=== PATIENT | female | born 1935 | race Caucasian/White ===

== ENCOUNTER 2016-07-22 11:04 | Emergency (ER) | payer MEDICARE ==
[2016-07-22] MEDS ORDERED: Aspirin Low Dose CHEW TAB* 81 MG PO ONE (11:40)
[2016-07-22] MEDS ORDERED: NS 0.9% 1000 ML* 1,000 ML IV SCH (11:45)
[2016-07-22 11:51] LABS: Hematocrit 41 % (35-47); Hemoglobin 13.3 g/dl (12.0-16.0); Mean Corpuscular HGB Conc 33 g/dl (31-36); Mean Corpuscular Hemoglobin 31 pg (27-31); Mean Corpuscular Volume 96 fL (80-97); Mean Platelet Volume 9 um3 (7.4-10.4); Red Blood Count 4.24 10^6/ul (4.0-5.4); Red Cell Distribution Width 15 % (10.5-15); White Blood Count 10.6 10^3/ul (3.5-10.8)
[2016-07-22 11:52] LABS: Add Diff/Slide Review? Slide Review Added; Comments Flag Yes
[2016-07-22 12:02] LABS: Albumin 3.5 g/dL (3.2-5.2); BUN/Creatinine Ratio 21.3 (8-20); C Reactive Protein 1.58 mg/L (< 5.00); Calcium 9.2 mg/dL (8.6-10.3); EGFR African American 78.7 (>60); EGFR Non-African American 61.2 (>60); Globulin 2.4 g/dL (2-4); Magnesium 1.8 mg/dL (1.9-2.7); Potassium 4.3 mmol/L (3.5-5.0); Total Bilirubin 0.9 mg/dL (0.2-1.0); Total Protein 5.9 g/dL (6.4-8.9)
--- NOTE | 2016-07-22 12:36 | RAD ---
INDICATION: Jaw pain COMPARISON: Similar chest x-ray dated November 10, 2015 TECHNIQUE: Single AP portable view of the chest was obtained. FINDINGS: Image quality is compromised due to the relative inferiority of a portable chest x-ray. The heart and mediastinum exhibit normal size and contour. The lungs are grossly clear. There is no evidence of a large pleural effusion. Visualized bones are normal for the patient's age. IMPRESSION: No radiographic evidence for acute cardiopulmonary abnormality on this portable chest x-ray.
--- NOTE | 2016-07-22 13:40 | ED ---
Amy Baca Adam, scribed for Augusto Juares MD on 07/22/16 at 1143 . Palpitations / Dysrhythmia - HPI Summary HPI Summary: A 81 y/o female presents to the ED c/o palpitations that started at 00:30 this morning with pain in her left jaw, neck, and arm. Additionally, she felt like her heart was racing with pressure. Currently, she has no symptoms, and came to the ED because she called Dr. Hanks's office and they recommended she come to the ED. Currently, patient has no CP, and she denies nausea, SOB, diaphoresis, extremity edema, or abdominal pain. PMHx is positive for HTN and Afib. She had a stress test in 2015. - History of Current Complaint Chief Complaint: EDDysrhythmPalp Time Seen by Provider: 07/22/16 11:10 Hx Obtained From: Patient Onset/Duration: Sudden Onset - 00:30 last night Timing: Intermittent Episodes Lasting: Severity Initially: Moderate Severity Currently: None Character: Fast Aggravating: Nothing Alleviating: Nothing - Allergy/Home Medications Allergies/Adverse Reactions: Allergies Allergy/AdvReac Type Severity Reaction Status Date / Time No Known Allergies Allergy Verified 07/05/14 11:34 PMH/Surg Hx/FS Hx/Imm Hx Endocrine/Hematology History: Reports: Hx Diabetes Cardiovascular History: Reports: Hx Atrial Fibrillation, Other Cardiovascular Problems/Disorders - IDDM II ORAL MEDS Denies: Hx Hypercholesterolemia, Hx Hypertension Musculoskeletal History: Denies: Hx Arthritis, Hx Osteoporosis Neurological History: Denies: Other Neuro Impairments/Disorders - Surgical History Surgery Procedure, Year, and Place: hysterectomy Infectious Disease History: No Infectious Disease History: Denies: Traveled Outside the [place] in Last 30 Days - Family History Known Family History: Negative: Cardiac Disease, Hypertension, Diabetes - Social History Alcohol Use: Daily Alcohol Amount: ONE GLASS A NIGHT Substance Use Type: Reports: None Hx Tobacco Use: No Smoking Status (MU): Never Smoked Tobacco Review of Systems Constitutional: Negative Negative: Skin Diaphoresis Eyes: Negative ENT: Negative Positive: Palpitations - with radiation to left neck, jaw, and arm. Negative: Chest Pain Respiratory: Negative Negative: Shortness Of Breath Gastrointestinal: Negative Negative: Abdominal Pain, Nausea Genitourinary: Negative Musculoskeletal: Negative Negative: Edema Skin: Negative Neurological: Negative Psychological: Normal All Other Systems Reviewed And Are Negative: Yes Physical Exam Triage Information Reviewed: Yes Vital Signs On Initial Exam: Initial Vitals Temp Pulse Resp BP Pulse Ox 97.4 F 69 15 140/59 100 07/22/16 11:17 07/22/16 11:17 07/22/16 11:17 07/22/16 11:17 07/22/16 11:17 Vital Signs Reviewed: Yes Appearance: Positive: Well-Appearing, No Pain Distress Skin: Positive: Warm, Skin Color Reflects Adequate Perfusion, Dry Head/Face: Positive: Normal Head/Face Inspection Eyes: Positive: EOMI, THUY ENT: Positive: Normal ENT inspection Neck: Positive: Supple, Nontender Respiratory/Lung Sounds: Positive: Clear to Auscultation, Breath Sounds Present Cardiovascular: Positive: RRR Abdomen Description: Positive: Nontender, Soft Bowel Sounds: Positive: Present Musculoskeletal: Positive: Normal, Strength/ROM Intact Neurological: Positive: Normal, Sensory/Motor Intact, Alert, Oriented to Person Place, Time Psychiatric: Positive: Normal Diagnostics - Vital Signs Vital Signs Temp Pulse Resp BP Pulse Ox 07/22/16 11:17 97.4 F 69 15 140/59 100 - Laboratory Lab Results: Lab Results 07/22/16 07/22/16 07/22/16 Range/Units 11:22 11:22 11:22 WBC 10.6 (3.5-10.8) 10^3/ul RBC 4.24 (4.0-5.4) 10^6/ul Hgb 13.3 (12.0-16.0) g/dl Hct 41 (35-47) % MCV 96 (80-97) fL MCH 31 (27-31) pg MCHC 33 (31-36) g/dl RDW 15 (10.5-15) % Plt Count 165 (150-450) 10^3/ul MPV 9 (7.4-10.4) um3 Neut % (Auto) 59.2 (38-83) % Lymph % (Auto) 31.3 (25-47) % [place]oshone % (Auto) 7.2 (1-9) % Eos % (Auto) 2.0 (0-6) % Baso % (Auto) 0.3 (0-2) % Absolute Neuts (auto) 6.2 (1.5-7.7) 10^3/ul Absolute Lymphs (auto) 3.3 (1.0-4.8) 10^3/ul Absolute Monos (auto) 0.8 (0-0.8) 10^3/ul Absolute Eos (auto) 0.2 (0-0.6) 10^3/ul Absolute Basos (auto) 0 (0-0.2) 10^3/ul Absolute Nucleated RBC 0.02 10^3/ul Nucleated RBC % 0.2 INR (Anticoag Therapy) 1.17 H (0.89-1.11) APTT 32.9 (26.0-36.3) seconds D-Dimer, Quantitative < 200 (Less Than 230) ng/mL Sodium 139 (133-145) mmol/L Potassium 4.3 (3.5-5.0) mmol/L Chloride 108 (101-111) mmol/L Carbon Dioxide 26 (22-32) mmol/L Anion Gap 5 (2-11) mmol/L BUN 19 (6-24) mg/dL Creatinine 0.89 (0.51-0.95) mg/dL Est GFR ( Amer) 78.7 (>60) Est GFR (Non-Af Amer) 61.2 (>60) BUN/Creatinine Ratio 21.3 H (8-20) Glucose 145 H (70-100) mg/dL Lactic Acid (0.5-2.0) mmol/L Calcium 9.2 (8.6-10.3) mg/dL Magnesium 1.8 L (1.9-2.7) mg/dL Total Bilirubin 0.90 (0.2-1.0) mg/dL AST 14 (13-39) U/L ALT 8 (7-52) U/L Alkaline Phosphatase 87 (34-104) U/L Total Creatine Kinase 29 (10-223) U/L CK-MB (CK-2) 1.5 (0.6-6.3) ng/mL Troponin I 0.00 (<0.04) ng/mL C-Reactive Protein 1.58 (< 5.00) mg/L B-Natriuretic Peptide ( - 100) pg/mL Total Protein 5.9 L (6.4-8.9) g/dL Albumin 3.5 (3.2-5.2) g/dL Globulin 2.4 (2-4) g/dL Albumin/Globulin Ratio 1.5 (1-3) Lipase 19 (11.0-82.0) U/L TSH 2.00 (0.34-5.60) mcIU/mL 07/22/16 07/22/16 Range/Units 11:22 11:22 WBC (3.5-10.8) 10^3/ul RBC (4.0-5.4) 10^6/ul Hgb (12.0-16.0) g/dl Hct (35-47) % MCV (80-97) fL MCH (27-31) pg MCHC (31-36) g/dl RDW (10.5-15) % Plt Count (150-450) 10^3/ul MPV (7.4-10.4) um3 Neut % (Auto) (38-83) % Lymph % (Auto) (25-47) % [place] % (Auto) (1-9) % Eos % (Auto) (0-6) % Baso % (Auto) (0-2) % Absolute Neuts (auto) (1.5-7.7) 10^3/ul Absolute Lymphs (auto) (1.0-4.8) 10^3/ul Absolute Monos (auto) (0-0.8) 10^3/ul Absolute Eos (auto) (0-0.6) 10^3/ul Absolute Basos (auto) (0-0.2) 10^3/ul Absolute Nucleated RBC 10^3/ul Nucleated RBC % INR (Anticoag Therapy) (0.89-1.11) APTT (26.0-36.3) seconds D-Dimer, Quantitative (Less Than 230) ng/mL Sodium (133-145) mmol/L Potassium (3.5-5.0) mmol/L Chloride (101-111) mmol/L Carbon Dioxide (22-32) mmol/L Anion Gap (2-11) mmol/L BUN (6-24) mg/dL Creatinine (0.51-0.95) mg/dL Est GFR ( Amer) (>60) Est GFR (Non-Af Amer) (>60) BUN/Creatinine Ratio (8-20) Glucose (70-100) mg/dL Lactic Acid 0.7 (0.5-2.0) mmol/L Calcium (8.6-10.3) mg/dL Magnesium (1.9-2.7) mg/dL Total Bilirubin (0.2-1.0) mg/dL AST (13-39) U/L ALT (7-52) U/L Alkaline Phosphatase (34-104) U/L Total Creatine Kinase (10-223) U/L CK-MB (CK-2) (0.6-6.3) ng/mL Troponin I (<0.04) ng/mL C-Reactive Protein (< 5.00) mg/L B-Natriuretic Peptide 213 H ( - 100) pg/mL Total Protein (6.4-8.9) g/dL Albumin (3.2-5.2) g/dL Globulin (2-4) g/dL Albumin/Globulin Ratio (1-3) Lipase (11.0-82.0) U/L TSH (0.34-5.60) mcIU/mL Result Diagrams: 07/22/16 11:22 07/22/16 11:22 Lab Statement: Any lab studies that have been ordered have been reviewed, and results considered in the medical decision making process. - Radiology CXR Xray Interpretation: No Acute Changes Radiology Interpretation Completed By: Radiologist - EKG 11:06 Cardiac Rate: NL - 68 EKG Rhythm: Sinus Rhythm EKG Interpretation: LBBB, NC 218 Re-Evaluation - Re-Evaluation First Eval Re-Evaluation Time: 13:32 Change: Unchanged Comment: Patient still without CP. Requesting discharge. Course/Dx - Course Assessment/Plan: PAIN FREE/NAD IN ED. DISCUSSED RESULTS AND ADMISSION WITH PATIENT/. PATIENT DECLINES ADMISSION, WISHES TO GO HOME. DISCHARGE HOME STABLE. - Diagnoses Provider Diagnoses: Chest pain Discharge - Discharge Plan Condition: Stable Disposition: HOME Patient Education Materials: Chest Pain (ED) Referrals: Chiquis Cisneros MD [Primary Care Provider] - Additional Instructions: FOLLOW UP WITH YOUR PRIMARY CARE DOCTOR AND MARINE [employer] D[employer] ATTENDANT, DR HANKS. RETURN TO THE EMERGENCY DEPARTMENT FOR ANY WORSENING OF YOUR CONDITION; CHEST PAIN, SHORTNESS OF BREATH, YOU FEEL ILL OR QUESTIONS OR CONCERNS. The documentation as recorded by the Amy rivera Adam accurately reflects the service I personally performed and the decisions made by me, Augusto Juares MD.
[2016-07-22 13:57] VITALS: BP 130/37
== END 2016-07-22 13:55 | disposition home or self-care (01) ==
LOC: ED 11:04
DX: R00.2 Palpitations (principal); R07.9 Chest pain, unspecified
CPT/HCPCS: 36415; 71010; 80053; 82550; 82553; 83605; 83690; 83735; 83880; 84443; 84484; 85025; 85379; 85610; 85730; 86140; 93005; 99284; A9270-GY

== ENCOUNTER 2017-02-01 10:52 | Inpatient (IN) | payer MEDICARE ==
[2017-02-01] MEDS ORDERED: Morphine INJ* 2 MG/ML 1 ML SYRINGE IV ONE ×2 (11:16→13:21)
--- NOTE | 2017-02-01 11:23 | ED ---
Lower Extremity - HPI Summary HPI Summary: Patient presents s/p fall x 30 minutes ago after falling onto the right hip and hearing a "crack." She denies hitting her head, LOC or other complaints at this time. She has been unable to ambulate and notes to pain in the right hip. Denies pain otherwise including JOHNSON, back pain or pelvic pain. Pain is very discretely located over the right lateral hip. No bruising or deformity noted, but patients hip is rotated inward. Denies other symptoms at this time. Pain is 7/10 and constant. - History of Current Complaint Chief Complaint: EDHipPelvisInjury Stated Complaint: FALL Time Seen by Provider: 02/01/17 11:09 Hx Obtained From: Patient Mechanism Of Injury: Blunt Trauma Onset of Pain: Immediate Onset/Duration: Minutes Severity Initially: Moderate Severity Currently: Moderate Pain Intensity: 5 Pain Scale Used: 0-10 Numeric Timing: Constant Location: Is Discrete @ - right hip without radiation Associated Signs And Symptoms: Positive: Negative Aggravating Factor(s): Standing, Ambulation, Movement Alleviating Factor(s): Rest Able to Bear Weight: No - Risk Factors Gout Risk Factors: Age Over 40 DVT Risk Factors: Negative Septic Arthritis Risk Factor: Negative - Allergies/Home Medications Allergies/Adverse Reactions: Allergies Allergy/AdvReac Type Severity Reaction Status Date / Time No Known Allergies Allergy Verified 02/01/17 11:08 Home Medications: Home Medications Atorvastatin* [Lipitor 20 MG*] 20 mg PO DAILY 02/01/17 [History Confirmed ] Dronedarone TAB* [Multaq TAB*] 400 mg PO DAILY 02/01/17 [History Confirmed 02/01] Pioglitazone HCl 30 mg PO DAILY 02/01/17 [History Confirmed 02/01/17] PMH/Surg Hx/FS Hx/Imm Hx Previously Healthy: Yes Endocrine/Hematology History: Reports: Hx Diabetes Cardiovascular History: Reports: Hx Atrial Fibrillation, Other Cardiovascular Problems/Disorders - IDDM II ORAL MEDS Denies: Hx Hypercholesterolemia, Hx Hypertension Musculoskeletal History: Denies: Hx Arthritis, Hx Osteoporosis Neurological History: Denies: Other Neuro Impairments/Disorders - Surgical History Surgery Procedure, Year, and Place: hysterectomy - Immunization History Hx Pertussis Vaccination: No Immunizations Up to Date: Unable to Obtain/Confirm Infectious Disease History: No Infectious Disease History: Denies: Traveled Outside the [place] in Last 30 Days - Family History Known Family History: Negative: Cardiac Disease, Hypertension, Diabetes - Social History Occupation: Retired Lives: With Family Alcohol Use: Daily Alcohol Amount: gin and tonic Hx Substance Use: No Substance Use Type: Reports: None Hx Tobacco Use: No Smoking Status (MU): Never Smoked Tobacco Review of Systems Constitutional: Negative Eyes: Negative Cardiovascular: Negative Respiratory: Negative Gastrointestinal: Negative Positive: no symptoms reported, see HPI Positive: Arthralgia, Myalgia Skin: Negative Neurological: Negative All Other Systems Reviewed And Are Negative: Yes Physical Exam Triage Information Reviewed: Yes Vital Signs On Initial Exam: Initial Vitals Temp Pulse Resp BP Pulse Ox 98.1 F 60 18 138/54 96 02/01/17 10:59 02/01/17 10:59 02/01/17 10:59 02/01/17 10:59 02/01/17 10:59 Vital Signs Reviewed: Yes Appearance: Positive: Well-Appearing, Well-Nourished Skin: Positive: Warm, Skin Color Reflects Adequate Perfusion Head/Face: Positive: Normal Head/Face Inspection Neck: Positive: Supple, Nontender, No Lymphadenopathy Respiratory/Lung Sounds: Positive: Clear to Auscultation, Breath Sounds Present Cardiovascular: Positive: Normal, RRR, Pulses are Symmetrical in both Upper and Lower Extremities Musculoskeletal: Positive: Limited @ - full limitation of right leg. unable to rotate at hip, unable to bear weight Neurological: Positive: Sensory/Motor Intact, Alert, Oriented to Person Place, Time, Speech Normal Psychiatric: Positive: Normal AVPU Assessment: Alert - [place] Coma Scale Coma Scale Total: 15 Diagnostics - Vital Signs Vital Signs Temp Pulse Resp BP Pulse Ox 02/01/17 11:06 98.1 F 60 17 138/54 97 02/01/17 11:05 60 97 02/01/17 10:59 98.1 F 60 18 138/54 96 - Laboratory Result Diagrams: 02/01/17 11:22 02/01/17 11:22 Lab Statement: Any lab studies that have been ordered have been reviewed, and results considered in the medical decision making process. Lower Extremity Course/Dx - Course Course Of Treatment: Patient sent to xrays of the hip and pelvis. Base labs drawn. Morphine 2mg given IV. IMPRESSION: COMMINUTED, DISPLACED, ANGULATED INTERTROCHANTERIC FRACTURE OF THE RIGHT FEMUR. Dr. Butcher called for consult. Recommended admit to hospitalist and ortho will come see patient within the next few days. Patient is on eliquis for a-fib and last dose was last evening. Pain is currently under control. She is otherwise stable. - Diagnoses Differential Diagnosis/HQI/PQRI: Positive: Contusion, Fracture (Closed), Fracture (Open) Provider Diagnoses: Closed comminuted intertrochanteric fracture of femur Discharge - Discharge Plan Condition: Stable Disposition: ADMITTED TO [facility] Referrals: Chiquis Cisneros MD [Primary Care Provider] -
[2017-02-01 11:37] LABS: Hematocrit 38 % (35-47); Hemoglobin 12.5 g/dl (12.0-16.0); Mean Corpuscular HGB Conc 33 g/dl (31-36); Mean Corpuscular Hemoglobin 32 pg (27-31); Mean Corpuscular Volume 97 fL (80-97); Mean Platelet Volume 9 um3 (7.4-10.4); Red Blood Count 3.95 10^6/ul (4.0-5.4); Red Cell Distribution Width 16 % (10.5-15); White Blood Count 11.2 10^3/ul (3.5-10.8)
[2017-02-01 11:46] LABS: Albumin 3.6 g/dL (3.2-5.2); BUN/Creatinine Ratio 23.4 (8-20); C Reactive Protein 1.32 mg/L (< 5.00); EGFR African American 73.9 (>60); EGFR Non-African American 57.4 (>60); Potassium 4.6 mmol/L (3.5-5.0); Total Bilirubin 1.2 mg/dL (0.2-1.0); Total Protein 5.6 g/dL (6.4-8.9)
[2017-02-01 12:17] LABS: Erythrocyte Sed Rate 10 mm/Hr (0-40)
--- NOTE | 2017-02-01 12:31 | RAD ---
INDICATION: Trauma, hip fracture. COMPARISON: Comparison is made with a prior chest x-ray study from July 21, 2016. TECHNIQUE: A single AP supine film of the chest was obtained. FINDINGS: The heart is mildly enlarged and unchanged from the prior exam. The lungs are hyperinflated and clear. No pleural effusion is seen. IMPRESSION: NO EVIDENCE FOR ACUTE FINDING.
--- NOTE | 2017-02-01 12:32 | RAD ---
INDICATION: Right hip injury. COMPARISON: There are no prior studies available for comparison. TECHNIQUE: An AP view of the pelvis and frontal and lateral views of the right hip were obtained. FINDINGS: There is a comminuted intertrochanteric fracture of the right femur. The fracture fragments are displaced and there is varus angulation of the fracture fragments. IMPRESSION: COMMINUTED, DISPLACED, ANGULATED INTERTROCHANTERIC FRACTURE OF THE RIGHT FEMUR.
[2017-02-01] MEDS ORDERED: Diazepam SYRINGE* 5 MG/ML SYRINGE IV ONE (13:22)
[2017-02-01] MEDS ORDERED: Ondansetron INJ* 2 MG/ML VIAL IV PRN (13:23)
[2017-02-01] MEDS ORDERED: Morphine INJ* 2 MG/ML 1 ML SYRINGE IV PRN (13:23)
[2017-02-01] MEDS ORDERED: oxyCODONE/Acetamin 5/325 MG* TAB PO PRN (13:23)
[2017-02-01] MEDS ORDERED: Cyclobenzaprine TAB* 10 MG PO PRN (13:26)
[2017-02-01] MEDS ORDERED: Dextrose 50% Syringe 50 ML* 25 GM/50 ML SYRINGE IV PUSH PRN (13:52)
[2017-02-01 14:13] LABS: Magnesium 1.7 mg/dL (1.9-2.7)
[2017-02-01] MEDS: Heparin VIAL(*) 5000 UNITS/ML VIAL (FIVE THOUSAND) SUBCUT SCH ×2 (14:59→21:35)
[2017-02-01] MEDS ORDERED: Magnesium Sulfate 2 GM IV* 2 GM/50 ML BAG IVPB ONE (16:41)
[2017-02-01 16:48] LABS: Urine Bilirubin Negative (Negative); Urine Glucose Negative (Negative); Urine Nitrite Negative (Negative)
[2017-02-01] MEDS: Insulin LISPRO* 1 UNITS UNIT SUBCUT SCH (17:38)
[2017-02-01] MEDS: Morphine INJ* 2 MG/ML 1 ML SYRINGE IV PRN (18:18)
[2017-02-01] MEDS: oxyCODONE/Acetamin 5/325 MG* TAB PO PRN (21:35)
[2017-02-01] MEDS: Metoprolol Tartrate TAB* 25 MG PO SCH (21:35)
--- NOTE | 2017-02-01 23:13 | HP ---
ATTENDING PHYSICIAN ADDENDUM NOW INCLUDED ON THIS REPORT CC: Dr. Cisneros* ADMISSION HISTORY AND PHYSICAL: DATE OF ADMISSION: 02/01/17 PRIMARY CARE PROVIDER: Dr. Cisneros. CONSULTING ORTHOPEDIC SURGEON: Dr. Butcher. ADMITTING PROVIDER: CARLA Booker SUPERVISING PHYSICIAN: Dr. Hutton * (DICTATED BY CARLA BOOKER) CHIEF COMPLAINT: Right hip pain. HISTORY OF PRESENT ILLNESS: This is a very pleasant 81-year-old female with non - insulin-dependent diabetes, paroxysmal atrial fibrillation, hyperlipidemia, cutaneous T-cell lymphoma who presented to the emergency department after sustaining a fall at home with right hip pain. The patient was gardening this morning when she tripped over the edge of her driveway trying to exit the garden falling onto the asphalt on her right hip. The patient presented to the emergency department with limited range of motion in the leg and obvious external rotation. Fracture confirmed by x-ray. The patient reports that her chronic medical conditions are well controlled. She is on glipizide and pioglitazone for diabetes management. She states that her fasting blood glucose averages about 110 to 115 mg/dL. She is unsure of what her last hemoglobin A1c was. She is followed by Dr. Hanks for her atrial fibrillation, which was diagnosed in July of this year. She was started on Multaq and metoprolol and anticoagulated with Eliquis at that time. She has had no further complaints of palpitations since initiating Multaq. She does have some chronic shortness of breath. Sleep testing was recommended by Dr. Hanks, which she did not follow through with for suspected sleep apnea. In regards to the patient's cutaneous T-cell lymphoma, she states that she has completed recommended therapy, which included topical cream, but she still uses daily triamcinolone. The patient denies any recent acute illness. She denies any change in her shortness of breath. She states that she is generally able to climb a flight of stairs but occasionally has to stop due to her dyspnea. No recent lower extremity edema or significant changes in weight. No complaints of chest pain or cough. No recent abdominal pain, nausea, or vomiting. No fever or chills. PAST MEDICAL HISTORY: 1. Bnx-xccnyfx-sjymwhuhq diabetes. 2. Atrial fibrillation. 3. Hyperlipidemia. 4. History of cutaneous T-cell lymphoma. PAST SURGICAL HISTORY: Hysterectomy. HOME MEDICATIONS: 1. Glipizide extended release 2.5 mg p.o. daily. 2. Eliquis 5 mg p.o. b.i.d. - last dose 01/31/17. 3. Atorvastatin 20 mg p.o. daily. 4. Multaq 400 mg p.o. daily. 5. Metoprolol tartrate 25 mg p.o. twice daily. 6. Pioglitazone 30 mg p.o. daily. 7. Triamcinolone cream apply topically daily. SOCIAL HISTORY: The patient lives at home with her . She denies any smoking history. She has 1 gin and tonic daily poured in the water glass. REVIEW OF SYSTEMS: As listed above in HPI and all other systems reviewed and considered negative. PHYSICAL EXAMINATION GENERAL: This is a very pleasant 81-year-old female accompanied by her and another family who does not appear to be in any distress at the time of exam. VITAL SIGNS: Temperature 98.1 degrees Fahrenheit, pulse 60 beats per minute, respiratory rate 18 per minute, oxygen saturation 96% on room air, and blood pressure 138/54 mmHg. HEENT: Head is normocephalic, atraumatic. Mucous membranes are pink and moist. RESPIRATORY: Lungs are clear to auscultation without wheezes, crackles, or rhonchi. CARDIOVASCULAR: Heart has a regular rate and rhythm without murmurs, rubs, or gallops. ABDOMEN: Soft and nontender to palpation. EXTREMITIES: There is trace edema. Right lower extremity is externally rotated. Further exam of the hip was not completed. Vascular - distal pulses are intact. LABORATORY EVALUATION: CBC shows white blood cell count of 11.2, hemoglobin of 12.5 g/dL, platelet count of 152,000. Comprehensive metabolic panel largely unremarkable with sodium of 139 mmol/L, potassium of 4.6, BUN 22, creatinine 0.94, random glucose of 136 mg/dL. Total bilirubin is mildly elevated at 1.2. Transaminases are normal. IMAGIN. Chest x-ray is read as no acute process, appears perhaps mildly congested per personal review. 2. EKG shows a sinus rhythm with left bundle-branch block, which is unchanged from prior. 3. X-ray of the right hip shows a comminuted right intertrochanteric hip fracture, which is slightly angulated. ASSESSMENT AND PLAN: This is a very pleasant 81-year-old female with non- insulin- dependent diabetes, atrial fibrillation, hyperlipidemia, and history of cutaneous T- cell lymphoma who presented after a fall at home resulting in a right intertrochanteric hip fracture. The patient is being admitted for appropriate management. 1. Hip fracture - comminuted right intertrochanteric fracture: Orthopedic surgeon, Dr. Butcher was contacted by emergency department provider. The patient' s surgical course will be somewhat complicated or at least delayed by her chronic use of Eliquis. Her last dose was last night, 01/31/17. Recommendations would be to wait 48 hours for a total of 4 missed doses before proceeding with surgery. The patient will receive prophylactic doses of heparin for DVT prophylaxis during that time but bridging with full dose anticoagulation is not necessary as her only indication for anticoagulation is atrial fibrillation. In regards to the surgical risks, the patient has an RCRI score of 0 placing her at 0.4% rate of potential cardiovascular complications perioperatively. The patient is medically optimized and there is no contraindication to moving forward with planned procedure after waiting time for her Eliquis has been completed. 2. Diabetes - the patient is well controlled without insulin therapy. We will hold her glipizide and pioglitazone during her hospital stay and treat with sliding scale lispro at mealtime. 3. Atrial fibrillation - the patient is sinus at this time and reports no history of palpitations since starting her Multaq. She does have chronic shortness of breath. Last echocardiogram seems to be from September 2015, referred to Dr. Hanks's last followup note from earlier this year and it was essentially within normal limits with an intact systolic function of the left ventricle with mild or borderline LVH and no significant valvular disease. No indication to repeat it at this time. We will plan to continue her Multaq and metoprolol including day of surgery. Her Eliquis will be held at this time as noted above. Bridging with full- dose anticoagulation is not indicated. 4. Hyperlipidemia. Plan to continue her statins. 5. History of cutaneous T-cell lymphoma - continue her daily triamcinolone. 6. Code status: The patient is full code. 7. Healthcare proxy is her . 8. DVT prophylaxis: The patient is chronically anticoagulated on Eliquis, which will be held. Prophylactic doses of heparin subcu will be given preoperatively and can likely resume her Eliquis postoperatively. DISPOSITION: The patient is being admitted to inpatient service. Pending orthopedic consultation. Anticipated length of stay is greater than 2 midnights. CARLA BOOKER ADDENDUM: Mrs. East is a 81-year-old female with history of recently diagnosed paroxysmal atrial fibrillation who presented to the hospital after mechanical fall and was noted to have a hip fracture. Medicine service is admitting the patient to the hospital. Due to the patient being on anticoagulation with Eliquis, she most likely will have the surgery in approximately [address] Butcher is involved from the orthopedic service. For further details of the patient's history and physical, please see the documentation dictated by Arnaldo Ware on 02/01/17, with which I agree. TEREZA HUTTON MD [id number]/CPS #: [id number]/CPS #: [id number] [place]
--- NOTE | 2017-02-01 23:13 | HP ---
HISTORY AND PHYSICAL:* ADDENDUM: Mrs. East is a 81-year-old female with history of recently diagnosed paroxysmal atrial fibrillation who presented to the hospital after mechanical fall and was noted to have a hip fracture. Medicine service is admitting the patient to the hospital. Due to the patient being on anticoagulation with Eliquis, she most likely will have the surgery in approximately [address] Butcher is involved from the orthopedic service. For further details of the patient's history and physical, please see the documentation dictated by Arnaldo Ware on 02/01/17, with which I agree. [id number]/CPS #: [id number] MTDD
[2017-02-02] MEDS: Morphine INJ* 2 MG/ML 1 ML SYRINGE IV PRN (04:05)
[2017-02-02] MEDS: Heparin VIAL(*) 5000 UNITS/ML VIAL (FIVE THOUSAND) SUBCUT SCH ×3 (06:21→21:28)
[2017-02-02] MEDS: oxyCODONE/Acetamin 5/325 MG* TAB PO PRN ×4 (06:22→20:03)
[2017-02-02 06:33] LABS: Hematocrit 37 % (35-47); Mean Corpuscular HGB Conc 33 g/dl (31-36); Mean Corpuscular Hemoglobin 32 pg (27-31); Mean Corpuscular Volume 99 fL (80-97); Mean Platelet Volume 9 um3 (7.4-10.4); Red Blood Count 3.74 10^6/ul (4.0-5.4); Red Cell Distribution Width 16 % (10.5-15); White Blood Count 11.3 10^3/ul (3.5-10.8)
[2017-02-02 06:49] LABS: BUN/Creatinine Ratio 26.8 (8-20); Calcium 8.5 mg/dL (8.6-10.3); EGFR African American 102.1 (>60); EGFR Non-African American 79.4 (>60); Potassium 4.5 mmol/L (3.5-5.0)
--- NOTE | 2017-02-02 08:03 | PN ---
Progress Note - Progress Note Date of Service: 02/02/17 SOAP: Subjective: 81 y/o female s/p mechanical fall resulting in right intertroch comm angulated displaced hip fx. Patient on Eliquis for A fib, last dose 01/31, surgery delayed due to this. Patient overall feeling well, pain at mid femur, worse with movement. Denies other pain. Bed rest Objective: General- Well appearing, resting comfortably. AO NAD MSK- R leg externally rotated, shortened. ROM not attempted d/t pain, NO pain with moderate palpation over hip, + tenderness anterior mid thigh, full ROM ankle b/l, PT 2+ b/l, neg homans sensation grossly intact b/l LEs Vital Signs Temp 97.5 F 02/02/17 07:45 Pulse 58 02/02/17 07:45 Resp 18 02/02/17 08:00 BP 133/38 02/02/17 07:45 Pulse Ox 96 02/02/17 07:45 Intake & Output 02/01/17 02/02/17 02/02/17 18:59 06:59 18:59 Intake Total 675 Output Total 700 Balance -25 Weight 200 lb Intake: IV Fluids 20 normal saline 20 IVPB 55 magnesium 55 Oral 600 Output: Dubose 700 Laboratory Results - last 24 hr 02/01/17 02/01/17 02/01/17 11:22 11:22 16:43 WBC 11.2 H RBC 3.95 L Hgb 12.5 Hct 38 MCV 97 MCH 32 H MCHC 33 RDW 16 H Plt Count 152 MPV 9 Neut % (Auto) 64.4 Lymph % (Auto) 26.3 [place] % (Auto) 7.1 Eos % (Auto) 1.6 Baso % (Auto) 0.6 Absolute Neuts (auto) 7.2 Absolute Lymphs (auto) 2.9 Absolute Monos (auto) 0.8 Absolute Eos (auto) 0.2 Absolute Basos (auto) 0.1 Absolute Nucleated RBC 0 Nucleated RBC % 0 ESR 10 Sodium 139 Potassium 4.6 Chloride 110 Carbon Dioxide 25 Anion Gap 4 BUN 22 Creatinine 0.94 Est GFR ( Amer) 73.9 Est GFR (Non-Af Amer) 57.4 BUN/Creatinine Ratio 23.4 H Glucose 136 H POC Glucose (mg/dL) Calcium 9.0 Magnesium 1.7 L Total Bilirubin 1.20 H AST 15 ALT 12 Alkaline Phosphatase 106 H Troponin I 0.00 C-Reactive Protein 1.32 Total Protein 5.6 L Albumin 3.6 Globulin 2.0 Albumin/Globulin Ratio 1.8 Urine Color Yellow Urine Appearance Clear Urine pH 5.0 Ur Specific [place] 1.017 Urine Protein Negative Urine Ketones Trace H Urine Blood Negative Urine Nitrate Negative Urine Bilirubin Negative Urine Urobilinogen Negative Ur Leukocyte Esterase Negative Urine Glucose Negative 02/01/17 02/02/17 02/02/17 16:58 06:04 06:04 WBC 11.3 H RBC 3.74 L Hgb 12.0 Hct 37 MCV 99 H MCH 32 H MCHC 33 RDW 16 H Plt Count 143 L MPV 9 Neut % (Auto) 66.0 Lymph % (Auto) 24.7 L [place] % (Auto) 8.4 Eos % (Auto) 0.6 Baso % (Auto) 0.3 Absolute Neuts (auto) 7.5 Absolute Lymphs (auto) 2.8 Absolute Monos (auto) 0.9 H Absolute Eos (auto) 0.1 Absolute Basos (auto) 0 Absolute Nucleated RBC 0.01 Nucleated RBC % 0.1 ESR Sodium 134 Potassium 4.5 Chloride 107 Carbon Dioxide 22 Anion Gap 5 BUN 19 Creatinine 0.71 Est GFR ( Amer) 102.1 Est GFR (Non-Af Amer) 79.4 BUN/Creatinine Ratio 26.8 H Glucose 142 H POC Glucose (mg/dL) 175 H Calcium 8.5 L Magnesium Total Bilirubin AST ALT Alkaline Phosphatase Troponin I C-Reactive Protein Total Protein Albumin Globulin Albumin/Globulin Ratio Urine Color Urine Appearance Urine pH Ur Specific [place] Urine Protein Urine Ketones Urine Blood Urine Nitrate Urine Bilirubin Urine Urobilinogen Ur Leukocyte Esterase Urine Glucose Assessment: 81 y/o female s/p mechanical fall resulting in right intertroch comm angulated displaced hip fx. Plan: - Plan for OR 02/03/2014 - discussed with patient - PT/ OT for other extremities, continue bed rest - Awaiting clearance for OR - heparin DVT prophyl - NPO p MN, hold heparin P MN Active Medications Generic Name Dose Route Start Last Admin Trade Name Freq PRN Reason Stop Dose Admin Atorvastatin Calcium 20 mg 02/02/17 09:00 02/02/17 09:04 Lipitor* PO 20 mg DAILY PAUL Administration Cyclobenzaprine HCl 10 mg 02/01/17 13:26 Flexeril Tab* PO TID PRN SPASMS Dextrose 12.5 gm 02/01/17 13:52 D50w Syringe 50 Ml* IV PUSH .FOR FS < 60 - SS PRN FS < 60 Dronedarone 400 mg 02/02/17 09:00 02/02/17 09:05 Multaq Tab* PO 400 mg DAILY PAUL Administration Heparin Sodium (Porcine) 5,000 units 02/01/17 14:00 02/02/17 06:21 Heparin Vial(*) SUBCUT 5,000 units Q8HR PAUL Administration Insulin Human Lispro 0 units 02/01/17 16:30 02/02/17 09:07 Humalog* SUBCUT Not Given AC [facility] Protocol Metoprolol Tartrate 25 mg 02/01/17 21:00 02/02/17 09:04 Lopressor Tab* PO 25 mg BID PAUL Administration Morphine Sulfate 2 mg 02/01/17 17:47 02/02/17 04:05 Morphine Inj (Syringe)* IV 2 mg Q2H PRN Administration PAIN Ondansetron HCl 4 mg 02/01/17 13:23 Zofran Inj* IV Q4H PRN NAUSEA/VOMITING Oxycodone/Acetaminophen 2 tab 02/01/17 17:47 02/02/17 06:22 Percocet 5/325 Tab* PO 2 tab Q4H PRN Administration Pain
--- NOTE | 2017-02-02 08:37 | PN ---
Subjective Date of Service: 02/02/17 Interval History: Patient seen this morning. Pain in the R hip but otherwise doing well. Not much of an appetite. Family History: Unchanged from Admission Social History: Unchanged from Admission Past Medical History: Unchanged from Admission Objective Active Medications: Atorvastatin Calcium (Lipitor*) 20 mg PO DAILY PAUL Cyclobenzaprine HCl (Flexeril Tab*) 10 mg PO TID PRN Dextrose (D50w Syringe 50 Ml*) 12.5 gm IV PUSH .FOR FS < 60 - SS PRN Dronedarone (Multaq Tab*) 400 mg PO DAILY [facility] Heparin Sodium (Porcine) (Heparin Vial(*)) 5,000 units SUBCUT Q8HR PAUL Insulin Human Lispro (Humalog*) 0 units SUBCUT AC PAUL Metoprolol Tartrate (Lopressor Tab*) 25 mg PO BID PAUL Morphine Sulfate (Morphine Inj (Syringe)*) 2 mg IV Q2H PRN Ondansetron HCl (Zofran Inj*) 4 mg IV Q4H PRN Oxycodone/Acetaminophen (Percocet 5/325 Tab*) 2 tab PO Q4H PRN Vital Signs 02/01/17 02/01/17 02/01/17 13:29 13:31 13:34 Temperature Pulse Rate 64 Respiratory 16 18 Rate Blood Pressure 145/47 (mmHg) O2 Sat by Pulse 91 Oximetry 02/02/17 02/02/17 02/02/17 04:01 04:05 06:22 Temperature 97.5 F Pulse Rate 59 Respiratory 16 16 16 Rate Blood Pressure 139/46 (mmHg) O2 Sat by Pulse 98 Oximetry Oxygen Devices in Use Now: None Appearance: Elderly, F, laying in bed in NAD Eyes: No Scleral Icterus Ears/Nose/Mouth/Throat: - - Dry MM Neck: NL Appearance and Movements; NL JVP Respiratory: Symmetrical Chest Expansion and Respiratory Effort, Clear to Auscultation - in anterior cannon Cardiovascular: NL Sounds; No Murmurs; No JVD, - - IRIR Abdominal: NL Sounds; No Tenderness; No Distention Lymphatic: No Cervical Adenopathy Extremities: No Edema, - - RLE shortened and externall rotated Skin: No Rash or Ulcers Neurological: Alert and Oriented x 3 Lines/Tubes/Other Access: Clean, Dry and Intact Dubose Result Diagrams: 02/02/17 06:04 02/02/17 06:04 Assess/Plan/Problems-Billing Assessment: R femoral intertrochanteric fx in a 81 yo F with hx of AFib on Eliquis, DM, HLD , cutaneous t-cell lymphoma - Patient Problems (1) Hip fracture Current Visit: Yes Comment: Appreciate Orthopedic assistance. CT pelvis ordered for today. Continue analgesia and supportive care, plans for OR on 02/03 to allow time for Eliquis to wash out. PT/OT evals pending. (2) Afib Current Visit: Yes Comment: Holding Eliquis. Continue Multaq and Metoprolol. (3) Diabetes Current Visit: Yes Comment: HISS (4) HLD (hyperlipidemia) Current Visit: Yes Comment: Continue statin (5) DVT prophylaxis Current Visit: Yes Comment: HSQ Status and Disposition: Inpatient for hip fx
[2017-02-02] MEDS: Metoprolol Tartrate TAB* 25 MG PO SCH ×2 (09:04→21:27)
[2017-02-02] MEDS: Atorvastatin* 20 MG TAB PO SCH (09:04)
[2017-02-02] MEDS: Dronedarone TAB* 400 MG PO SCH (09:05)
[2017-02-02] MEDS: Insulin LISPRO* 1 UNITS UNIT SUBCUT SCH ×3 (09:07→17:30)
--- NOTE | 2017-02-02 10:43 | RAD ---
INDICATION: Right hip fracture. COMPARISON: Comparison is made with a prior CT of the abdomen and pelvis from July 05, 2014 and a prior x-ray study of the right hip from February 01, 2017. TECHNIQUE: Contiguous axial sections were obtained through the pelvis without intravenous or oral contrast. Images were reconstructed in the coronal and sagittal planes. FINDINGS: There is a comminuted intertrochanteric fracture of the right femur extending into the subtrochanteric region. The lesser trochanter is seen as a separate fragment. The major distal fragment is displaced one shaft diameter medial relative the proximal fragment and the fracture fragments are in varus angulation. The pelvic bones appear intact without evidence for additional fracture. The hip joint spaces appear maintained. 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 The visualized portion of the small bowel and colon appear nondistended. There is severe sigmoid diverticulosis without evidence for diverticulitis. There is a catheter within the urinary bladder. There are a couple small air bubbles within the bladder. No free intraperitoneal air or fluid is seen. IMPRESSION: THERE IS A COMMINUTED, DISPLACED, ANGULATED INTERTROCHANTERIC FRACTURE OF THE RIGHT FEMUR EXTENDING INTO THE SUBTROCHANTERIC REGION.
--- NOTE | 2017-02-02 15:45 | RAD ---
INDICATION: Right femur fracture, pain mid and distal femur assess for change. COMPARISON: Comparison is made with a prior x-ray study of the right hip from February 01, 2017. TECHNIQUE: 2 views of the right femur were obtained. FINDINGS: Again note is made of an slightly comminuted intertrochanteric fracture of the right femur extending into the subtrochanteric region. The fracture fragments are displaced and in varus angulation which appears unchanged from the prior study. No additional fracture is seen. IMPRESSION: DISPLACED FRACTURE OF THE PROXIMAL FEMUR, UNCHANGED. NO ADDITIONAL FRACTURE IS SEEN.
[2017-02-03] MEDS: oxyCODONE/Acetamin 5/325 MG* TAB PO PRN ×3 (00:14→21:09)
--- NOTE | 2017-02-03 07:13 | PN ---
Subjective Date of Service: 02/03/17 Interval History: Patient seen this morning. No new complaints. Pain only with movement. No chest pain or SOB. No fevers. Family History: Unchanged from Admission Social History: Unchanged from Admission Past Medical History: Unchanged from Admission Objective Active Medications: Atorvastatin Calcium (Lipitor*) 20 mg PO DAILY ON LICENSE OF [facility] Cyclobenzaprine HCl (Flexeril Tab*) 10 mg PO TID PRN Dextrose (D50w Syringe 50 Ml*) 12.5 gm IV PUSH .FOR FS < 60 - SS PRN Dronedarone (Multaq Tab*) 400 mg PO DAILY ON LICENSE OF [facility] Sodium Chloride (Ns 0.9% 1000 Ml*) 1,000 mls @ 75 mls/hr IV .PER RATE ON LICENSE OF [facility] Insulin Human Lispro (Humalog*) 0 units SUBCUT AC ON LICENSE OF [facility] Metoprolol Tartrate (Lopressor Tab*) 25 mg PO BID PAUL Morphine Sulfate (Morphine Inj (Syringe)*) 2 mg IV Q2H PRN Ondansetron HCl (Zofran Inj*) 4 mg IV Q4H PRN Oxycodone/Acetaminophen (Percocet 5/325 Tab*) 2 tab PO Q4H PRN Vital Signs 02/02/17 02/02/17 02/02/17 07:45 08:00 08:22 Temperature 97.5 F Pulse Rate 58 Respiratory 14 18 18 Rate Blood Pressure 133/38 (mmHg) O2 Sat by Pulse 96 Oximetry 02/02/17 02/02/17 02/02/17 10:58 11:58 12:58 Temperature 98.1 F Pulse Rate 59 Respiratory 20 16 18 Rate Blood Pressure 134/44 (mmHg) O2 Sat by Pulse 95 Oximetry 02/02/17 02/02/17 02/02/17 15:49 15:52 17:52 Temperature 97.8 F Pulse Rate 60 Respiratory 16 18 18 Rate Blood Pressure 146/44 (mmHg) O2 Sat by Pulse 96 Oximetry 02/02/17 02/02/17 02/02/17 19:40 19:58 20:00 Temperature 98.3 F Pulse Rate 68 Respiratory 18 18 18 Rate Blood Pressure 134/45 (mmHg) O2 Sat by Pulse 95 Oximetry 02/02/17 02/02/17 02/02/17 20:03 22:03 23:54 Temperature 98.0 F Pulse Rate 73 Respiratory 18 16 16 Rate Blood Pressure 130/43 (mmHg) O2 Sat by Pulse 98 Oximetry 02/03/17 02/03/17 02/03/17 00:14 02:14 03:38 Temperature 97.6 F Pulse Rate 64 Respiratory 16 16 16 Rate Blood Pressure 149/46 (mmHg) O2 Sat by Pulse 99 Oximetry Oxygen Devices in Use Now: None Appearance: Elderly, F, laying in bed in NAD Eyes: No Scleral Icterus Ears/Nose/Mouth/Throat: - - Dry MM Neck: NL Appearance and Movements; NL JVP Respiratory: Symmetrical Chest Expansion and Respiratory Effort, Clear to Auscultation - in anterior field Cardiovascular: NL Sounds; No Murmurs; No JVD, - - IRIR Abdominal: NL Sounds; No Tenderness; No Distention Lymphatic: No Cervical Adenopathy Extremities: No Edema, - - RLE shortened and externally rotated Neurological: Alert and Oriented x 3 Result Diagrams: 02/02/17 06:04 02/02/17 06:04 Assess/Plan/Problems-Billing Assessment: R femoral intertrochanteric fx in a 81 yo F with hx of AFib on Eliquis, DM, HLD , cutaneous t-cell lymphoma - Patient Problems (1) Hip fracture Current Visit: Yes Comment: Appreciate Orthopedic assistance. Plans for OR on today (02/03), Eliquis washed out. PT/OT after surgery. (2) Afib Current Visit: Yes Comment: Holding Eliquis, will restart once surgery OKs. Continue Multaq and Metoprolol. (3) Diabetes Current Visit: Yes Comment: HISS (4) HLD (hyperlipidemia) Current Visit: Yes Comment: Continue statin (5) DVT prophylaxis Current Visit: Yes Comment: HSQ Status and Disposition: Inpatient for hip fx
[2017-02-03] MEDS: Metoprolol Tartrate TAB* 25 MG PO SCH ×2 (08:22→21:04)
[2017-02-03] MEDS: Insulin LISPRO* 1 UNITS UNIT SUBCUT SCH ×3 (08:28→17:19)
[2017-02-03] MEDS: Atorvastatin* 20 MG TAB PO SCH (08:29)
[2017-02-03] MEDS: Dronedarone TAB* 400 MG PO SCH (08:30)
[2017-02-03 09:28] LABS: Hematocrit 33 % (35-47); Hemoglobin 10.6 g/dl (12.0-16.0); Mean Corpuscular HGB Conc 33 g/dl (31-36); Mean Corpuscular Hemoglobin 32 pg (27-31); Mean Corpuscular Volume 99 fL (80-97); Mean Platelet Volume 9 um3 (7.4-10.4); Red Blood Count 3.28 10^6/ul (4.0-5.4); Red Cell Distribution Width 16 % (10.5-15); White Blood Count 11.7 10^3/ul (3.5-10.8)
[2017-02-03] MEDS ORDERED: ceFAZolin 2 GM PREMIX(*) 2 GM/50 ML BAG IVPB ONE (12:24)
[2017-02-03] MEDS ORDERED: Sodium Citrate/Citric Acid* 15 ML UDC ONE (12:25)
[2017-02-03] MEDS ORDERED: Bupivacaine 0.25% W/EPI* 50 ML VIAL ONE (12:28)
[2017-02-03] MEDS ORDERED: fentaNYL* 50 MCG/ML 2 ML VIAL (100 MCG VIAL) ONE ×2 (12:43→15:25)
[2017-02-03] MEDS ORDERED: Lidocaine 2% PF * 5 ML VIAL ONE (12:43)
[2017-02-03] MEDS ORDERED: Propofol* 10 MG/ML 20 ML BTL IV PUSH ONE (12:43)
[2017-02-03] MEDS ORDERED: Succinylcholine* 20 MG/ML 10 ML VIAL ONE (12:43)
[2017-02-03] MEDS ORDERED: Magnesium Hydroxide LIQ* 30 ML UDC PO PRN (15:19)
[2017-02-03] MEDS ORDERED: Bisacodyl SUPP* 10 MG SUPP PR PRN (15:19)
[2017-02-03] MEDS ORDERED: Polyethylene Glycol 3350* 17 GM PACKET PO PRN (15:19)
[2017-02-03] MEDS ORDERED: oxyCODONE/Acetamin 5/325 MG* TAB PO PRN (15:19)
[2017-02-03] MEDS ORDERED: diPHENhydraMINE IV* 50 MG/ML 1 ml VIAL (BENADRYL) IV PRN (15:19)
[2017-02-03] MEDS ORDERED: NS 0.9% 1000 ML* 1,000 ML IV SCH ×2 (15:25)
[2017-02-03] MEDS: fentaNYL* 50 MCG/ML 2 ML VIAL (100 MCG VIAL) IV PRN ×4 (15:27→16:03)
[2017-02-03] MEDS ORDERED: DiMENhydriNATE IV* 50 MG/ML VIAL IV PUSH PRN (15:29)
--- NOTE | 2017-02-03 15:29 | RAD ---
INDICATION: Right hip fracture, operative reduction and internal fixation. COMPARISON: Comparison is made with a prior x-ray study of the right hip from February 01, 2017. TECHNIQUE: 157 seconds of intermitted fluoroscopic were provided and an in AP and lateral films of the right femur were obtained in the operating room. FINDINGS: The films again demonstrate an intertrochanteric and subtrochanteric fracture of the right femur. There is placement of a femoral head nail and intramedullary mk spanning the fracture fragments which are in improved alignment and positioning. The intramedullary mk is transfixed distally in the femur with a single surgical screw. IMPRESSION: INTRAOPERATIVE CONTROL FILMS. CPT II Codes: 6045F
[2017-02-03] MEDS ORDERED: oxyCODONE/Acetamin 5/325 MG* TAB ONE (16:19)
[2017-02-03] MEDS: D5W 1/2 NS 1000 ML BAG* 1,000 ML IV SCH (17:14)
[2017-02-03] MEDS: Ondansetron INJ* 2 MG/ML VIAL IV PRN (17:16)
[2017-02-03] MEDS: Morphine INJ* 2 MG/ML 1 ML SYRINGE IV PRN (18:12)
[2017-02-03] MEDS: ceFAZolin VIAL(*) 1 GM in NS 0.9% 50 ML* 50 ML IVPB SCH (21:01)
[2017-02-03] MEDS: Docusate CAP* 100 MG PO SCH (21:04)
[2017-02-03] MEDS: Ferrous Sulfate TAB* 325 MG PO SCH (21:04)
[2017-02-04] MEDS: D5W 1/2 NS 1000 ML BAG* 1,000 ML IV SCH (03:22)
[2017-02-04] MEDS: oxyCODONE/Acetamin 5/325 MG* TAB PO PRN ×4 (03:23→16:38)
[2017-02-04] MEDS: ceFAZolin VIAL(*) 1 GM in NS 0.9% 50 ML* 50 ML IVPB SCH ×2 (05:21→12:23)
[2017-02-04 06:30] LABS: Hematocrit 27 % (35-47)
[2017-02-04 06:48] LABS: BUN/Creatinine Ratio 21.9 (8-20); EGFR African American 72.1 (>60); EGFR Non-African American 56.1 (>60); Potassium 4.7 mmol/L (3.5-5.0)
--- NOTE | 2017-02-04 07:20 | OP ---
DATE OF OPERATION: 02/03/17 - ROOM #[id number] DATE OF : 39 SURGEON: Chadd Singh MD [employer] HELPER: Aparna Lindsey RPA ANESTHESIA: General. PRE-OP DIAGNOSIS: Reverse oblique proximal right femur fracture. POST-OP DIAGNOSIS: Reverse oblique proximal right femur fracture. OPERATIVE PROCEDURE: IM nailing right proximal femur fracture. ESTIMATED BLOOD LOSS: 200 cc. COMPLICATIONS: None. HARDWARE: Long gamma nail with distal locking screw. INDICATIONS: Ms. East is a 81-year-old female who had been gardening Friday and ended up falling directly on to her right hip. She had sustained a reverse oblique intertrochanteric fracture and Dr. Butcher, who was field artillery operations man had asked if perhaps I could add her on for Friday. She is on Eliquis and at least 48 hours is the recommendation before moving on to surgery. She was admitted to the hospitalist service and I discussed with Ms. East and her family that an intramedullary nailing should work well to realign the bones and hold them in place while they heal. Risks of surgery such as infection, scar formation, stiffness, DVT, pulmonary embolism, hardware failure, malrotation of the leg, and shortening of the leg were some of the risks discussed. They had wished to proceed. DESCRIPTION OF PROCEDURE: The patient was brought to the OR and general anesthesia was established. She was then transferred to the fracture table and placed into straight traction and then adjusted until her fracture appeared to be lined up really quite well. I thought I had excellent alignment by x-ray and right hip area was prepped and then draped. She is quite heavy set, so x- ray guidance was used to make sure I was just a little bit above the tip of the greater trochanter and an incision was made. Skin over all the incisions had been infiltrated using 0.25% Marcaine with epinephrine. A total of 50 cc would be used through the case. Incision was carried down through skin and subcutaneous fat. Metzenbaum scissor was placed and adjusted until it pointed right at the tip of the medial side of the greater trochanter. It was then spread a little bit and the awl was then placed right at that same spot. Adjustments were made using C-arm guidance once again until I liked the start hole as I wanted it to be nice and medial on the tip of the greater trochanter and awl was then started into the bone. This was then checked in the lateral position and my alignment appeared really quite good. Pushing the awl inwards and rotating just a little bit, I was able to get a nice bite. She had, however , a vertical split which came upwards from the reverse oblique intertrochanteric fracture, I did not want to blow apart the entire proximal femur. Therefore, after just starting with the awl, guidewire was placed and guidewire came very nicely through the fracture and down into the shaft. C-arm was brought down to make sure I was down in the femoral shaft and I was. Over- sized reamer was then used proximally and I came very gently to once again truly ream rather than push, and again the proximal femur did not split. She was then progressively reamed with the flexible reamers until I got a little bit of chatter with the 13. I had measured the nail and 36 which seemed to fit quite well. A 36 x 11 x 125 degree long nail was called for and it slid very nicely into place. The lag screw hole was observed for where it would come out very nicely right along the inferior calcar of the neck. Unfortunately when the nail was placed, she settled into a little more varus than she had when I first had reamed her and had her in a closed alignment. Even with some adjustment, she really did not seem to move out of this position. Incision was made over the lateral side of the femur for the lag screw and a straight snap was used to bluntly split the soft tissues. Guide was placed and guidewire was run up and into the neck and was checked in AP and lateral positions until I liked the positioning. A 115 mm lag screw was called for and I had a very nice bite with it. This was then locked into place distally. We attempted to get perfect circles, but because of the positioning on the fracture table, we were unable to get perfect circles. I thought, though, I had a good alignment with it and drill was run after incising the skin. It appeared that the drill did go through the mk and this was checked in the AP view to make sure that I was not too oblique. I adjusted until I was straight. A 50 mm screw was called for , but I had difficulty getting the screw across to the far cortex and then it finally appeared that I was missing the mk. Eventually, screw was removed and perfect circles were obtained, drill was run, and then I was able to place a new 50 mm screw. Final C-arm pictures were saved. Wounds were irrigated using a bulb syringe and the deep fascia proximally was closed using a 0 Vicryl. Subcutaneous tissues were reapproximated using 2-0 Vicryl. Skin was closed using sharmin. Sterile dressing was applied in the OR. The patient was then extubated in the OR and was stable on transfer to the recovery room. [id number]/[facility] #: [id number] MTDD
--- NOTE | 2017-02-04 07:42 | PN ---
Subjective Date of Service: 02/04/17 Interval History: Patient seen this morning. Reports some back pain yesterday after surgery that resolved, hip pain is tolerable right now, not bad if she doesn't move. Not much of an appetite yesterday, had some crackers in the evening but no N/V. No BM yet. Family History: Unchanged from Admission Social History: Unchanged from Admission Past Medical History: Unchanged from Admission Objective Active Medications: Atorvastatin Calcium (Lipitor*) 20 mg PO DAILY PAUL Bisacodyl (Dulcolax Supp*) 10 mg [place] DAILY PRN Cyclobenzaprine HCl (Flexeril Tab*) 10 mg PO TID PRN Dextrose (D50w Syringe 50 Ml*) 12.5 gm IV PUSH .FOR FS < 60 - SS PRN Diphenhydramine HCl (Benadryl Iv*) 12.5 mg IV Q6H PRN Docusate Sodium (Colace Cap*) 100 mg PO BID PAUL Dronedarone (Multaq Tab*) 400 mg PO DAILY PAUL Ferrous Sulfate (Ferrous Sulfate Tab*) 325 mg PO BID [facility] Heparin Sodium (Porcine) (Heparin Vial(*)) 5,000 units SUBCUT Q8HR PAUL Dextrose/Sodium Chloride (D5w 1/2 Ns 1000 Ml Bag*) 1,000 mls @ 100 mls/hr IV PER RATE PAUL Cefazolin Sodium 1 gm/ Sodium (Chloride) 50 mls @ 200 mls/hr IVPB Q8H PAUL Sodium Chloride (Ns 0.9% 1000 Ml*) 1,000 mls @ 75 mls/hr IV .PER RATE [facility] Insulin Human Lispro (Humalog*) 0 units SUBCUT AC PAUL Lactulose (Lactulose*) 30 ml PO Q6H PRN Magnesium Hydroxide (Milk Of Magnesia Liq*) 30 ml PO Q6H PRN Metoprolol Tartrate (Lopressor Tab*) 25 mg PO BID PAUL Morphine Sulfate (Morphine Inj (Syringe)*) 2 mg IV Q2H PRN Multivitamins (Theragran Tab*) 1 tab PO DAILY PAUL Ondansetron HCl (Zofran Inj*) 4 mg IV Q6H PRN Oxycodone/Acetaminophen (Percocet 5/325 Tab*) 2 tab PO Q4H PRN Oxycodone/Acetaminophen (Percocet 5/325 Tab*) 1 tab PO Q4H PRN Polyethylene Glycol/Electrolytes (Miralax*) 17 gm PO DAILY PRN Vital Signs 02/03/17 02/03/17 02/03/17 07:45 09:18 11:10 Temperature 98.2 F 97.9 F Pulse Rate 63 64 Respiratory 16 16 16 Rate Blood Pressure 130/37 142/46 (mmHg) O2 Sat by Pulse 95 96 Oximetry 02/03/17 02/03/17 02/03/17 19:52 20:52 21:04 Temperature 98.0 F Pulse Rate 72 Respiratory 20 16 Rate Blood Pressure 131/39 (mmHg) O2 Sat by Pulse 97 94 Oximetry 02/03/17 02/03/17 02/04/17 21:09 22:45 03:19 Temperature 97.4 F 98.1 F Pulse Rate 74 68 Respiratory 20 14 16 Rate Blood Pressure 128/39 137/40 (mmHg) O2 Sat by Pulse 99 99 Oximetry Oxygen Devices in Use Now: Nasal Cannula - 2L Appearance: Elderly, F, laying in bed in NAD Eyes: No Scleral Icterus Ears/Nose/Mouth/Throat: - - Dry MM Neck: NL Appearance and Movements; NL JVP Respiratory: Symmetrical Chest Expansion and Respiratory Effort, Clear to Auscultation Cardiovascular: NL Sounds; No Murmurs; No JVD, - - IRIR Abdominal: NL Sounds; No Tenderness; No Distention Lymphatic: No Cervical Adenopathy Extremities: No Edema, - - R hip dressing c/d/i Neurological: Alert and Oriented x 3 Lines/Tubes/Other Access: Clean, Dry and Intact Dubose Result Diagrams: 02/04/17 06:08 02/04/17 06:08 Assess/Plan/Problems-Billing Assessment: R femoral intertrochanteric fx in a 81 yo F with hx of AFib on Eliquis, DM, HLD , cutaneous t-cell lymphoma - Patient Problems (1) Hip fracture Current Visit: Yes Comment: Appreciate Orthopedic assistance. S/P R IM nail on 02/03. Management as per Ortho. PT/OT. (2) Afib Current Visit: Yes Comment: Holding Eliquis, will restart once surgery OKs. Continue Multaq and Metoprolol. (3) Diabetes Current Visit: Yes Comment: HISS (4) HLD (hyperlipidemia) Current Visit: Yes Comment: Continue statin (5) DVT prophylaxis Current Visit: Yes Comment: HSQ Status and Disposition: Inpatient for hip fx
[2017-02-04] MEDS: Metoprolol Tartrate TAB* 25 MG PO SCH ×2 (08:24→20:29)
[2017-02-04] MEDS: Atorvastatin* 20 MG TAB PO SCH (08:24)
[2017-02-04] MEDS: Vitamin THERAPEUTIC TAB PO SCH (08:25)
[2017-02-04] MEDS: Docusate CAP* 100 MG PO SCH ×2 (08:25→20:29)
[2017-02-04] MEDS: Ferrous Sulfate TAB* 325 MG PO SCH ×2 (08:25→20:29)
[2017-02-04] MEDS: Insulin LISPRO* 1 UNITS UNIT SUBCUT SCH ×3 (08:26→17:25)
[2017-02-04] MEDS: Dronedarone TAB* 400 MG PO SCH (08:26)
--- NOTE | 2017-02-04 09:00 | PN ---
Progress Note - Progress Note Date of Service: 02/04/17 SOAP: Subjective: []Patient seen at bedside working with PT. Feeling nauseated, needed to sit back down on her bed. She has not had breakfast but has had her am medications which she feels is contributing to the nausea. Denies SOB , CP. Objective: [] Vital Signs Temp 98.2 F 02/04/17 07:40 Pulse 74 02/04/17 07:40 Resp 16 02/04/17 08:23 BP 134/36 02/04/17 07:40 Pulse Ox 100 02/04/17 07:45 Intake & Output 02/03/17 02/04/17 02/04/17 18:59 06:59 18:59 Intake Total 1200 2319 Output Total 350 450 Balance 850 1869 Intake: IV Fluids 1200 1576 D5W 1/2 NS 1576 LR 1200 IVPB 103 ABX - CEFAZOLIN 103 Oral 640 Output: Urine 250 [place]ose 150 200 Estimated Blood Loss 200 Laboratory Results - last 24 hr 02/03/17 02/03/17 02/03/17 09:11 09:11 11:25 WBC 11.7 H RBC 3.28 L Hgb 10.6 L Hct 33 L MCV 99 H MCH 32 H MCHC 33 RDW 16 H Plt Count 135 L MPV 9 INR (Anticoag Therapy) 0.94 APTT 30.2 Sodium Potassium Chloride Carbon Dioxide Anion Gap BUN Creatinine Est GFR ( Amer) Est GFR (Non-Af Amer) BUN/Creatinine Ratio Glucose POC Glucose (mg/dL) 161 H Calcium 02/03/17 02/04/17 02/04/17 15:27 06:08 06:08 WBC RBC Hgb 9.0 L Hct 27 L MCV MCH MCHC RDW Plt Count MPV INR (Anticoag Therapy) APTT Sodium 129 L Potassium 4.7 Chloride 104 Carbon Dioxide 21 L Anion Gap 4 BUN 21 Creatinine 0.96 H Est GFR ( Amer) 72.1 Est GFR (Non-Af Amer) 56.1 BUN/Creatinine Ratio 21.9 H Glucose 201 H POC Glucose (mg/dL) 130 H Calcium 8.0 L Right thigh dressings intact and dry caf non tender/ soft sensation intact 2+ pedal pulse Assessment: []s/p Long gamma IM nail right femur for reverse IT fx, POD #1 Plan: []PT/OT PWB 50% RLE Resume Eliquis Monday 02/05, heparin until tomorrow
[2017-02-04] MEDS: Ondansetron INJ* 2 MG/ML VIAL IV PRN (09:48)
[2017-02-04] MEDS: Heparin VIAL(*) 5000 UNITS/ML VIAL (FIVE THOUSAND) SUBCUT SCH ×2 (15:00→21:31)
[2017-02-05] MEDS: oxyCODONE/Acetamin 5/325 MG* TAB PO PRN ×2 (03:53→08:48)
[2017-02-05] MEDS: Heparin VIAL(*) 5000 UNITS/ML VIAL (FIVE THOUSAND) SUBCUT SCH (05:39)
[2017-02-05 05:58] LABS: Hematocrit 27 % (35-47); Hemoglobin 8.7 g/dl (12.0-16.0)
[2017-02-05 08:37] VITALS: BP 143/52
[2017-02-05] MEDS: Atorvastatin* 20 MG TAB PO SCH (08:49)
[2017-02-05] MEDS: Vitamin THERAPEUTIC TAB PO SCH (08:49)
[2017-02-05] MEDS: Metoprolol Tartrate TAB* 25 MG PO SCH (08:49)
[2017-02-05] MEDS: Dronedarone TAB* 400 MG PO SCH (08:49)
[2017-02-05] MEDS: Docusate CAP* 100 MG PO SCH (08:49)
[2017-02-05] MEDS: Ferrous Sulfate TAB* 325 MG PO SCH (08:49)
[2017-02-05] MEDS: Insulin LISPRO* 1 UNITS UNIT SUBCUT SCH (08:50)
--- NOTE | 2017-02-05 09:50 | DCNOTE ---
Patient seen this morning. No complaints other than hip pain with movement. Reports appetite has been picking up. Has PMRU bed. On exam, IRIR, s1 and s2 present, no m/g/r, lungs clear in anterior cannon, abd obese, soft, NTND, BS+, no LE edema, R hip dressing c/d/i Restart home Eliquis today for AFib. Patient stable for transfer to [facility].
[2017-02-05] MEDS ORDERED: Apixaban* 5 MG TAB PO SCH (10:00)
--- NOTE | 2017-02-06 01:26 | DS ---
CC: Dr. Cisneros * DISCHARGE SUMMARY: DATE OF ADMISSION: 02/01/17 DATE OF DISCHARGE TO [facility]: 02/05/17 PRIMARY CARE PHYSICIAN: Dr. Cisneros PRINCIPAL DISCHARGE DIAGNOSIS: Right intertrochanteric fracture. SECONDARY DIAGNOSES: 1. Zaa-uxwzpmy-izsvaojjw diabetes. 2. Atrial fibrillation. 3. Hyperlipidemia. 4. History of cutaneous T-cell lymphoma. DISCHARGE MEDICATION REGIMEN: 1. Dronedarone 400 mg by mouth daily. 2. Atorvastatin 20 mg by mouth daily. 3. Eliquis 5 mg by mouth 2 times daily. 4. Metoprolol tartrate 25 mg by mouth 2 times daily. 5. Percocet 1 to 2 tablets by mouth every 4 hours as needed for pain. 6. Multivitamin 1 tablet by mouth daily. 7. MiraLAX 17 g by mouth daily as needed for constipation. 8. Milk of magnesia 30 mL by mouth every 6 hours as needed for constipation. 9. Lactulose 30 mL by mouth every 6 hours as needed for constipation. 10. Lispro sliding scale. 11. Ferrous sulfate 325 mg by mouth 2 times daily. 12. Flexeril 10 mg by mouth 3 times daily as needed for muscle spasms. 13. Dulcolax suppository 10 mg per rectum daily as needed for constipation. STUDIES DONE DURING HOSPITALIZATION: Hip x-ray, impression: Comminuted displaced angulated intertrochanteric fracture of the right femur. Chest x-ray , impression: No evidence of acute findings. CT of the pelvis, impression: Comminuted displaced angulated intertrochanteric fracture of the right femur extending into the subtrochanteric region. Right femur x-ray, impression: Displaced fracture of the proximal femur unchanged. No additional fracture is seen. HISTORY OF PRESENT ILLNESS AND HOSPITAL SUMMARY: Please see the full history and physical by CARLA Baldwin, for full details. Briefly, Ms. East is a 81-year-old female with with past medical history as above who presented to the hospital after a mechanical fall at home. Imaging revealed a right-sided intertrochanteric fracture. She was evaluated by Orthopedics and decision was made to proceed with surgery. However, she was allowed 48 hours to allow Eliquis to wash out of her system to minimize her bleeding risk. The patient was monitored in the hospital. She subsequently went to the OR on 02/03/17, where she underwent intramedullary nailing of the right proximal femur. She tolerated the procedure well. Her Eliquis was restated on 02/05/17 when Surgery felt that it was safe. She was evaluated by PT in [facility] and was felt to be a good candidate and was transferred there. TIME SPENT: Total time spent on this discharge, 45 minutes. This is a summary of the hospitalization, please see the full medical record for further details. [id number]/[facility] #: [id number] [facility]
== END 2017-02-05 10:25 | DRG 482 ==
LOC: ED 10:52 → SSU 13:23
PROVIDERS: ADMIT Internal Medicine; ATTEND Hospitalist
PROC: 0QH636Z Insertion of Intramedullary Internal Fixation Device into Right Upper Femur, Percutaneous Approach (ICD-10-PCS; principal; 2017-02-01)
DX: S72.141A Displaced intertrochanteric fracture of right femur, initial encounter for closed fracture (principal); I48.0 Paroxysmal atrial fibrillation; E11.9 Type 2 diabetes mellitus without complications; Z90.710 Acquired absence of both cervix and uterus; E78.5 Hyperlipidemia, unspecified; Z85.72 Personal history of non-Hodgkin lymphomas; W01.0XXA Fall on same level from slipping, tripping and stumbling without subsequent striking against object, initial encounter; Y93.H2 Activity, gardening and landscaping; Y92.096 Garden or yard of other non-institutional residence as the place of occurrence of the external cause; Z79.01 Long term (current) use of anticoagulants; Z79.4 Long term (current) use of insulin
CPT/HCPCS: 36415; 71010; 72192; 80048; 80053; 81003; 83735; 84484; 85014; 85018; 85025; 85027; 85610; 85652; 85730; 86140; 93005; 94760; A9270-GY; C1713; C1776; J0330; J0690; J1644; J2270; J2405; J2704; J3010; J3360

== ENCOUNTER 2017-02-05 08:08 | Inpatient (IN) | payer MEDICARE ==
[2017-02-05] MEDS ORDERED: Acetaminophen TAB* 325 MG PO PRN (16:23)
[2017-02-05] MEDS ORDERED: Magnesium Hydroxide LIQ* 30 ML UDC PO PRN (16:23)
[2017-02-05] MEDS ORDERED: Dextrose 50% Syringe 50 ML* 25 GM/50 ML SYRINGE IV PUSH PRN (16:31)
[2017-02-05] MEDS ORDERED: oxyCODONE/Acetamin 5/325 MG* TAB PO PRN (16:39)
[2017-02-05] MEDS: Insulin LISPRO* 1 UNITS UNIT SUBCUT SCH ×2 (16:50→21:21)
[2017-02-05] MEDS ORDERED: Atorvastatin* 20 MG TAB PO SCH (17:00)
--- NOTE | 2017-02-05 20:48 | HP ---
ADMISSION HISTORY AND PHYSICAL: DATE OF ADMISSION: 02/05/17 REASON FOR ADMISSION: Right hip fracture. HISTORY OF PRESENT ILLNESS: Mandy East is a 81-year-old female with a history of diabetes mellitus. She also has a history of atrial fibrillation as well. The patient was pulling weeds in her garden on 02/01/17. She was backing up after pulling up some weeds and she tripped over something and fell on to her right hip. Luckily, she had her cellphone on her. She was able to call 911. She was brought by ambulance to [facility]. X-rays were taken which showed a comminuted intertrochanteric fracture of the right hip. As the patient was taking Eliquis for her atrial fibrillation, surgery had to be delayed. She was taken to the operating room on 02/03/17 and underwent an IM nailing of the right proximal femur fracture. Postoperatively, her course was benign. She had acute blood loss anemia, but was not transfused. Her Eliquis was restarted this morning. She was felt to have physical therapy and occupational therapy needs. She is now being admitted for inpatient rehab so that she might return to independent living. PAST MEDICAL HISTORY: Significant for the aforementioned atrial fibrillation, that was diagnosed in July of this year. She was started on Multaq as well as anticoagulated with Eliquis. The patient also has a history of hypertension , diabetes, and cutaneous T-cell lymphoma. For her diabetes, she takes glipizide once a day. CURRENT MEDICATIONS: Include: 1. Eliquis. 2. Lipitor. 3. Multaq. 4. Lopressor. 5. Percocet for pain control. ALLERGIES: No known drug allergies. SOCIAL HISTORY: She is a nonsmoker. She has 1 gin and tonic daily. She lives with her in a 2-story house, but they stay on the first floor. REVIEW OF SYSTEMS: The patient reports no current shortness of breath or chest pain. PHYSICAL EXAMINATION VITAL SIGNS: The patient's temperature is 98.0, blood pressure is 130/41, pulse 74, respirations 18. HEENT: Her extraocular movements are intact. Tongue is midline. NECK: Supple. LUNGS: Sound clear to auscultation bilaterally. HEART: Sounds are regular. S1 and S2 are audible. ABDOMEN: Soft and nontender. EXTREMITIES: Her right hip has a wound which is clean and dry. Peripheral pulses were intact. NEUROLOGIC: She is awake, alert, and oriented. Muscle strength is roughly 3/5 in the right leg, otherwise 5/5. FUNCTIONAL EXAM: She transfers with moderate amount of assistance. ASSESSMENT: Intertrochanteric fracture of her right hip status post IM nailing of same. PLAN: Integrate her into a comprehensive and therapeutic rehab program with the following goals: 1. Physical Therapy will work with the patient. They are going to work on functional transfer training and ambulation training with a walker. 2. Occupational Therapy will see the patient and work on her activities of daily living including toileting and toilet transfers. 3. We will resume her Eliquis for her atrial fibrillation. This will work for DVT prophylaxis as well. 4. Adequate analgesia. 5. Her bowels will be regulated. 6. For diabetes, we are going to restart her glipizide. We will continue her sliding scale insulin. 7. For atrial fibrillation, we will continue Eliquis as well as Multaq and Lopressor. 8. Family training as appropriate. 9. Advance directives: The patient is a full code. Healthcare proxy is her . 10. pharmacy services representative will be closely involved to make sure that any services and equipment that the patient requires are in place prior to discharge. 11. Home with appropriate services. ESTIMATED LENGTH OF STAY: 10 to 12 days. [id number]/[facility] #: [id number] MTDD
[2017-02-05] MEDS: Senna TAB PO SCH (21:21)
[2017-02-05] MEDS: Metoprolol Tartrate TAB* 25 MG PO SCH (21:21)
[2017-02-05] MEDS: Docusate CAP* 100 MG PO SCH (21:21)
[2017-02-05] MEDS: Apixaban* 5 MG TAB PO SCH (21:21)
[2017-02-05] MEDS ORDERED: Heparin VIAL(*) 5000 UNITS/ML VIAL (FIVE THOUSAND) SUBCUT SCH (22:00)
[2017-02-05] MEDS: oxyCODONE/Acetamin 5/325 MG* TAB PO PRN (22:34)
[2017-02-06 07:01] LABS: Urine Bacteria Absent (Absent); Urine Bilirubin Negative (Negative); Urine Glucose Negative (Negative); Urine Nitrite Negative (Negative)
[2017-02-06] MEDS: Insulin LISPRO* 1 UNITS UNIT SUBCUT SCH ×4 (10:26→21:21)
[2017-02-06] MEDS: oxyCODONE/Acetamin 5/325 MG* TAB PO PRN (10:27)
[2017-02-06] MEDS: Docusate CAP* 100 MG PO SCH ×2 (10:28→21:20)
[2017-02-06] MEDS: Apixaban* 5 MG TAB PO SCH ×2 (10:28→21:21)
[2017-02-06] MEDS: Metoprolol Tartrate TAB* 25 MG PO SCH ×2 (10:28→21:21)
[2017-02-06] MEDS: Dronedarone TAB* 400 MG PO SCH (10:36)
[2017-02-06] MEDS: Atorvastatin* 20 MG TAB PO SCH (18:04)
[2017-02-06] MEDS: Senna TAB PO SCH (21:20)
[2017-02-07 06:25] LABS: Hematocrit 27 % (35-47); Hemoglobin 8.8 g/dl (12.0-16.0); Mean Corpuscular HGB Conc 33 g/dl (31-36); Mean Corpuscular Hemoglobin 32 pg (27-31); Mean Corpuscular Volume 98 fL (80-97); Mean Platelet Volume 8 um3 (7.4-10.4); Red Blood Count 2.73 10^6/ul (4.0-5.4); Red Cell Distribution Width 16 % (10.5-15); White Blood Count 12.7 10^3/ul (3.5-10.8)
[2017-02-07 06:28] LABS: Add Diff/Slide Review? Slide Review Added; Comments Flag Yes
[2017-02-07 06:46] LABS: Albumin 2.7 g/dL (3.2-5.2); BUN/Creatinine Ratio 28.6 (8-20); EGFR African American 117.2 (>60); EGFR Non-African American 91.2 (>60); Globulin 2.3 g/dL (2-4); Total Bilirubin 1.8 mg/dL (0.2-1.0)
[2017-02-07] MEDS: Insulin LISPRO* 1 UNITS UNIT SUBCUT SCH ×4 (08:57→21:38)
[2017-02-07] MEDS: Dronedarone TAB* 400 MG PO SCH (08:58)
[2017-02-07] MEDS: glipiZIDE TAB.XL* 2.5 MG PO SCH (08:58)
[2017-02-07] MEDS: Apixaban* 5 MG TAB PO SCH ×2 (08:58→21:36)
[2017-02-07] MEDS: Metoprolol Tartrate TAB* 25 MG PO SCH ×2 (08:58→21:36)
[2017-02-07] MEDS: Docusate CAP* 100 MG PO SCH ×2 (08:58→21:38)
[2017-02-07] MEDS: oxyCODONE/Acetamin 5/325 MG* TAB PO PRN ×2 (09:49→15:01)
--- NOTE | 2017-02-07 11:23 | RAD ---
Indication: Leukocytosis. 2 views of the chest are reviewed. No mediastinal shift is noted. There is cardiomegaly. Lung cannon demonstrate no pleural fluid, pneumonia or pneumothorax. IMPRESSION: No active cardiopulmonary disease is noted.
--- NOTE | 2017-02-07 12:15 | PMRUTEAM ---
PMRU: Goals Current Status: Nursing: Current Status Skin Deviations [r hip/leg] Incision Skin Deviation Description [r sharmin CDI hip/leg] Physical Therapy: Current Status Bed Mobility Assistance Mod Assist,2 or More Person Assist Transfer Moblility Assistance EZ stand Transfer/Bed Mobility EZ Stand Recommended Devices Ambulation Assistance Unable Ambulation Assistive Devices Rolling Walker Stairs Assistance not tested Stairs Recommended Devices Straight Cane,One Rail Number of Stairs 2 Occupational Therapy: Current Status Upper Body Dressing Supervision Lower Body Dressing Total Assist,2 Person Assist Bathing Mod Assist,2 Person Assist Toileting Total Assist,2 Person Assist Toilet Transfer Total Assist,2 Person Assist Eating Independent Instrumental ADL Dependent for IADLs Rec Therapy: Current Status Summary of Assessment and Pt. was open to conversation - appeared a little Clinical Impression down about admission and stated "I hope I won't be here long". Pt. states she enjoys her life and was able to identify with interests. Pt. was open to continued leisure visits. Treatment Goals Pt. will engage in leisure activities while on the unit. Treatment Plan Provide RT services and encourage involvement. Social Work: Current Status Discharge Plan return home with home care svs and family support Potential for Family Training pt's is involved and supportive Anticipated Discharge Home Destination Discharge With home care svs and family support Goals: Physical Therapy: Updated Goals Independent with rolling walker transfers and ambulation 150ft. Independent bed mobility. Will use ramp to get in house. Occupational Therapy: Initial Goals Goals to be Completed in (Days 21 days ) Upper Body Bathing Routine Independent Lower Body Bathing Routine Modified Independent with Upper Body Dressing Routine Independent Lower Body Dressing Routine Modified Independent with Toilet Hygeine and Clothing Modified Independent with Management Routine Toilet Transfer Routine Modified Independent with Step-In Shower Transfer Modified Independent with Routine Tub Transfer Routine Modified Independent with Functional Transfers for ADL Modified Independent with Grooming Routine Independent Feeding Routine Independent Social Work: Goals Discharge Plan return home with home care svs and family support Potential for Family Training pt's is involved and supportive Anticipated Discharge Home Destination Discharge With home care svs and family support Care Plan: Care Plan ADL's - Improve/Maintain Start: 02/06/17 14:39 Freq: DAILY Status: Active Target: Activity Type Activity Date Activity User E-Sign Co-Sign Detail Recorded Client Recorded Date Recorded By Document 02/06/17 14:39 [id number] [id number] 02/06/17 14:41 [id number] 02/06/17 14:39 PMRU Outcome: ADL's/ADL Transfers Orders/Interventions Occupational Therapy Evaluation & Treatment Communication Tool in Patient Room Device Yes: EZ stand Patient to receive OT 5x/wk for 60-120 Therex min/day Self Care Management Group Therapy UE/LE ADL's with Assist Yes ADL Transfers with Assist Yes Toileting: Transfers,Clothing Management Yes ,Hygeine w/Assist Light Kitchen/Laundry w/Assist Yes Progression Toward Outcome/Goals Progressing Outcome/Goals Met Pt. completed bathing with mod assist, lower body dressing total assist x2, upper body dressing S, grooming S, toileting total assist x2, and toilet transfers with total assist x2 . Pt. had brief episode of confusion this morning, but it was resolved for afternoon session. Cardiovascular- Improve/Maintain Start: 02/05/17 12:25 Freq: DAILY Status: Active Target: Activity Type Activity Date Activity User E-Sign Co-Sign Detail Recorded Client Recorded Date Recorded By Document 02/06/17 22:47 [id number] [id number] 02/06/17 22:54 [id number] 02/06/17 22:47 PMRU Outcome: Cardiovascular Vital Signs q Shift for 48hrs Then BID Yes Daily Weight Ordered No Current Cardiovascular Outcome/Goal Maintain/ Improve Perfusion Free of Abnormal Cardiac Symptoms Progression Toward Outcome/Goal Progressing DVT Prophylaxis- Improve/Maintain Start: 02/05/17 12:25 Freq: DAILY Status: Active Target: Activity Type Activity Date Activity User E-Sign Co-Sign Detail Recorded Client Recorded Date Recorded By Document 02/06/17 22:47 [id number] 02/06/17 22:54 [id number] 02/06/17 22:47 PMRU Outcome: DVT Prophylaxis Outcome/Goals Remains Free of DVT Complies with DVT Prophylaxis /Treatment Demonstrates Knowledge of DVT Prevention/ Treatment TEDS Stockings on Every AM, Off at HS Progression Toward Outcome/Goals Progressing Discharge Planning - Improve/Maintain Start: 02/05/17 12:25 Freq: DAILY Status: Active Target: Activity Type Activity Date Activity User E-Sign Co-Sign Detail Recorded Client Recorded Date Recorded By Document 02/06/17 00:22 [id number] 02/06/17 00:22 [id number] 02/06/17 00:22 PMRU Outcome: Discharge Planning Update Patient Family No Outcome/Goals Demonstrates Understanding of Discharge Plan Progression Toward Outcome/Goals Progressing Education-Improve/Maintain Start: 02/05/17 12:25 Freq: DAILY Status: Active Target: Activity Type Activity Date Activity User E-Sign Co-Sign Detail Recorded Client Recorded Date Recorded By Document 02/06/17 22:47 [id number] 02/06/17 22:54 [id number] 02/06/17 22:47 PMRU Outcome: Education Outcome/Goals Encourage Questions Progression Toward Outcome/Goals Progressing /GI-Improve/Maintain Start: 02/05/17 12:25 Freq: DAILY Status: Active Target: Activity Type Activity Date Activity User E-Sign Co-Sign Detail Recorded Client Recorded Date Recorded By Document 02/06/17 22:47 [id number] [email or web address] 02/06/17 22:54 [id number] 02/06/17 22:47 PMRU Outcome: Genitourinary/ Gastrointestinal Genitourinary- Outcome/Goals Remain Free of Hospital- Acquired UTI Gastrointestinal-Outcome/Goals Maintain/ Achieve Bowel Regularity in Accordance with Pt's Baseline Prevent Constipation Laxatives as Ordered Progression Toward Outcome/Goals - Progressing Progression Toward Outcome/Goals - GI Progressing Outcome/Goals Met Comment Pt took PRN MOM at HS Medication Administration Start: 02/05/17 12:25 Freq: DAILY Status: Active Target: Activity Type Activity Date Activity User E-Sign Co-Sign Detail Recorded Client Recorded Date Recorded By Document 02/06/17 22:47 [id number] 02/06/17 22:54 [id number] 02/06/17 22:47 PMRU Outcome: Medication Administration Assess Patient Knowledge/Teach Med Yes Education for all Meds Outcome/Goals Patient Independent with Medication Administration at Home Demonstrates Understanding Progression Towards Outcome/Goals Progressing Is Patient Going Home on Lovenox? No Metabolic Status- Improve/Maintain Start: 02/05/17 12:25 Freq: DAILY Status: Active Target: Activity Type Activity Date Activity User E-Sign Co-Sign Detail Recorded Client Recorded Date Recorded By Document 02/06/17 22:47 [id number] 02/06/17 22:54 [id number] 02/06/17 22:47 PMRU Outcome: Metabolic Status Have Fingersticks Been Ordered Yes Fingerstick Order Frequency AC & HS Outcome/Goals Maintain/ Improve Metabolic Status Demonstrate Knowledge of Prevention/ Treatment of Metabolic Imbalances Progression Toward Outcome/Goals Progressing Mobility- Improve/Maintain Start: 02/05/17 11:36 Freq: DAILY Status: Active Target: Activity Type Activity Date Activity User E-Sign Co-Sign Detail Recorded Client Recorded Date Recorded By Document 02/06/17 17:12 [id number] [id number] 02/06/17 17:12 [id number] 02/06/17 17:12 PMRU Outcome: Mobility Physical Therapy Evaluation and Yes Treatment Activity OOB with Assistance Yes: 50% WBing RLE Device Yes Assistance Yes Patient to be seen 5x/wk for 60-120 min/ Therex day for: Mobility Training Gait Training Balance Outcome/Goals Maintain/ Achieve Baseline Mobility Status Improve Mobility Status Demonstrates Proper Use of Assistive Devices Free from Complications of Immobility Progression Toward Outcome/Goals Progressing Bed Mobility Yes: Independent Transfers Yes: Modified Independent with RW Gait x ft Yes: Modified Independent 150 ' with RW Up/Down Stairs Yes: Independent 2 steps 1 rail, straight cane With HEP Yes: Independent Goal Comment Mantain 50% WB RLE 100% of time Pain/Comfort- Improve/Maintain Start: 02/05/17 12:25 Freq: DAILY Status: Active Target: Activity Type Activity Date Activity User E-Sign Co-Sign Detail Recorded Client Recorded Date Recorded By Document 02/06/17 22:47 [id number] 02/06/17 22:54 [id number] 02/06/17 22:47 PMRU Outcome: Pain/Comfort Outcome/Goals Demonstrates Knowledge and Use of Available Comfort Measures Achieves Acceptable Comfort/Pain Level as Determined by Patient/Condit Maintain Comfort Level Allowing Patient to Fully Participate in Rehab Progression Toward Outcome/Goals Progressing Respiratory - Improve/Maintain Start: 02/05/17 12:25 Freq: DAILY Status: Active Target: Activity Type Activity Date Activity User E-Sign Co-Sign Detail Recorded Client Recorded Date Recorded By Document 02/06/17 22:47 [id number] 02/06/17 22:54 [id number] 02/06/17 22:47 PMRU Outcome: Respiratory Does Patient Have a Trach No Outcome/Goals Maintain/ Improve Baseline Respiratory Status Maintain/ Improve Activity Tolerance Prevent Pneumonia/ Atelectasis Progression Toward Outcome/Goals Progressing Safety- Improve/Maintain Start: 02/05/17 12:25 Freq: DAILY Status: Active Target: Activity Type Activity Date Activity User E-Sign Co-Sign Detail Recorded Client Recorded Date Recorded By Document 02/06/17 22:47 [id number] 02/06/17 22:54 [id number] 02/06/17 22:47 PMRU Outcome: Safety Outcome/Goals Cooperates with Safety Measures for Least Restrictive Environment Prevent Falls/ Injury Progression Toward Outcome/Goals Progressing Skin- Improve/Maintain Start: 02/05/17 12:25 Freq: DAILY Status: Active Target: Activity Type Activity Date Activity User E-Sign Co-Sign Detail Recorded Client Recorded Date Recorded By Document 02/06/17 22:47 [id number] 02/06/17 22:54 [id number] 02/06/17 22:47 PMRU Outcome: Skin Skin Risk Level Medium Skin Orders Dressing Change Turn/Position q2hr While in Bed Outcome/Goals Free from Decubitus Surgical Incisions Healing Progression Toward Outcome/Goals Progressing Medicine Note: Length of Stay: [3 weeks] Anticipated Discharge Destination: Home Tentative Discharge Date: [02/28/17] Discharged to: [home]
[2017-02-07 15:33] LABS: Urine Bacteria Absent (Absent); Urine Bilirubin Negative (Negative); Urine Glucose 1+(50 mg/dL) (Negative); Urine Nitrite Negative (Negative)
[2017-02-07] MEDS: Atorvastatin* 20 MG TAB PO SCH (17:21)
[2017-02-07] MEDS: Sulfamethox/Trimethoprim DS 800/160* TAB PO SCH (21:36)
[2017-02-07] MEDS: Senna TAB PO SCH (21:36)
[2017-02-08 06:53] LABS: Add Diff/Slide Review? Slide Review Added; Comments Flag Yes; Hematocrit 28 % (35-47); Hemoglobin 9.2 g/dl (12.0-16.0); Mean Corpuscular HGB Conc 33 g/dl (31-36); Mean Corpuscular Hemoglobin 32 pg (27-31); Mean Corpuscular Volume 98 fL (80-97); Mean Platelet Volume 8 um3 (7.4-10.4); Red Blood Count 2.82 10^6/ul (4.0-5.4); Red Cell Distribution Width 15 % (10.5-15); White Blood Count 13.8 10^3/ul (3.5-10.8)
[2017-02-08] MEDS: Dronedarone TAB* 400 MG PO SCH (09:00)
[2017-02-08] MEDS: Docusate CAP* 100 MG PO SCH ×2 (09:00→21:09)
[2017-02-08] MEDS: Sulfamethox/Trimethoprim DS 800/160* TAB PO SCH ×2 (09:00→21:09)
[2017-02-08] MEDS: Apixaban* 5 MG TAB PO SCH ×2 (09:00→21:09)
[2017-02-08] MEDS: Metoprolol Tartrate TAB* 25 MG PO SCH ×2 (09:01→21:09)
[2017-02-08] MEDS: glipiZIDE TAB.XL* 2.5 MG PO SCH (09:01)
[2017-02-08] MEDS: oxyCODONE/Acetamin 5/325 MG* TAB PO PRN ×2 (09:01→14:43)
[2017-02-08] MEDS: Insulin LISPRO* 1 UNITS UNIT SUBCUT SCH ×4 (09:32→21:12)
[2017-02-08] MEDS: Pioglitazone TAB* 30 MG PO SCH (11:25)
[2017-02-08] MEDS: Atorvastatin* 20 MG TAB PO SCH (17:16)
[2017-02-08] MEDS: Senna TAB PO SCH (21:08)
[2017-02-09] MEDS: oxyCODONE/Acetamin 5/325 MG* TAB PO PRN ×4 (02:49→23:40)
[2017-02-09] MEDS: Insulin LISPRO* 1 UNITS UNIT SUBCUT SCH ×4 (08:04→22:27)
[2017-02-09] MEDS: Pioglitazone TAB* 30 MG PO SCH (08:05)
[2017-02-09] MEDS: Apixaban* 5 MG TAB PO SCH ×2 (08:05→22:11)
[2017-02-09] MEDS: glipiZIDE TAB.XL* 2.5 MG PO SCH (08:05)
[2017-02-09] MEDS: Dronedarone TAB* 400 MG PO SCH (08:05)
[2017-02-09] MEDS: Docusate CAP* 100 MG PO SCH ×2 (08:06→22:07)
[2017-02-09] MEDS: Sulfamethox/Trimethoprim DS 800/160* TAB PO SCH (08:06)
[2017-02-09] MEDS: Metoprolol Tartrate TAB* 25 MG PO SCH ×2 (08:06→22:11)
[2017-02-09] MEDS: Atorvastatin* 20 MG TAB PO SCH (17:35)
[2017-02-09] MEDS: Senna TAB PO SCH (22:11)
[2017-02-10 06:35] LABS: Comments Flag Yes; Hematocrit 27 % (35-47); Mean Corpuscular HGB Conc 33 g/dl (31-36); Mean Corpuscular Hemoglobin 33 pg (27-31); Mean Corpuscular Volume 99 fL (80-97); Mean Platelet Volume 8 um3 (7.4-10.4); Red Blood Count 2.76 10^6/ul (4.0-5.4); Red Cell Distribution Width 16 % (10.5-15); White Blood Count 13.1 10^3/ul (3.5-10.8)
[2017-02-10 06:36] LABS: Add Diff/Slide Review? Slide Review Added
[2017-02-10 06:46] LABS: Albumin 2.7 g/dL (3.2-5.2); BUN/Creatinine Ratio 22.7 (8-20); Calcium 8.7 mg/dL (8.6-10.3); EGFR African American 79.7 (>60); Globulin 2.3 g/dL (2-4); Potassium 4.6 mmol/L (3.5-5.0); Total Bilirubin 1.4 mg/dL (0.2-1.0)
[2017-02-10] MEDS: Insulin LISPRO* 1 UNITS UNIT SUBCUT SCH ×4 (09:09→22:07)
[2017-02-10] MEDS: oxyCODONE/Acetamin 5/325 MG* TAB PO PRN (10:38)
[2017-02-10] MEDS: Metoprolol Tartrate TAB* 25 MG PO SCH ×2 (10:39→22:06)
[2017-02-10] MEDS: Docusate CAP* 100 MG PO SCH ×2 (10:39→22:06)
[2017-02-10] MEDS: Apixaban* 5 MG TAB PO SCH ×2 (10:39→22:05)
[2017-02-10] MEDS: Pioglitazone TAB* 30 MG PO SCH (10:39)
[2017-02-10] MEDS: glipiZIDE TAB.XL* 2.5 MG PO SCH (10:40)
[2017-02-10] MEDS: Dronedarone TAB* 400 MG PO SCH (10:40)
[2017-02-10] MEDS: Atorvastatin* 20 MG TAB PO SCH (17:13)
[2017-02-10] MEDS: Senna TAB PO SCH (21:44)
[2017-02-10] MEDS: Methocarbamol TAB* 500 MG PO PRN (22:06)
[2017-02-11] MEDS: Docusate CAP* 100 MG PO SCH ×3 (08:03→19:49)
[2017-02-11] MEDS: oxyCODONE/Acetamin 5/325 MG* TAB PO PRN ×2 (08:03→12:15)
[2017-02-11] MEDS: Apixaban* 5 MG TAB PO SCH ×2 (08:04→20:58)
[2017-02-11] MEDS: Metoprolol Tartrate TAB* 25 MG PO SCH ×2 (08:04→20:58)
[2017-02-11] MEDS: glipiZIDE TAB.XL* 2.5 MG PO SCH (08:04)
[2017-02-11] MEDS: Insulin LISPRO* 1 UNITS UNIT SUBCUT SCH ×4 (08:04→20:59)
[2017-02-11] MEDS: Pioglitazone TAB* 30 MG PO SCH (08:04)
[2017-02-11] MEDS: Dronedarone TAB* 400 MG PO SCH (08:04)
--- NOTE | 2017-02-11 12:53 | PMRUTEAM ---
PMRU: Goals Current Status: Nursing: Current Status Skin Deviations [r hip/leg] Incision Skin Deviation Description [r CDI hip/leg] Bladder Current Status weaver d/c 1 void noted in am Bowel Current Status continent bm 02/11/17 Nutrition Current Status adequate Physical Therapy: Current Status Bed Mobility Assistance mod A Transfer Moblility Assistance mod a with RW Transfer/Bed Mobility Rolling Walker Recommended Devices Ambulation Assistance not tested Ambulation Assistive Devices Rolling Walker Number of Feet Patient 1 Ambulated Stairs Assistance not tested Stairs Recommended Devices Straight Cane,One Rail Number of Stairs 2 Objective Comments Pt's pain continued throughout the session. RN notified - discussed stronger meds. Pt wants meds after session bc it makes her sleepy. Progression will be difficult if pain is not under control. Occupational Therapy: Current Status Upper Body Dressing Supervision Lower Body Dressing Contact Guard Assist Bathing Mod Assist Toileting Mod Assist Toilet Transfer Contact Guard Assist Shower Transfer Contact Guard Assist Eating Independent Instrumental ADL Dependent for IADLs Rec Therapy: Current Status Summary of Assessment and RT assessment complete and pt. is aware of Clinical Impression services. Pt. watches TV regularly in the afternoons and expresses desire to be d/c'ed soon. Treatment Goals Pt. will engage in leisure activities while on the unit. Treatment Plan Provide RT services and encourage involvement. Social Work: Current Status Discharge Plan return home with home care svs and family support Potential for Family Training pt's is involved and supportive Anticipated Discharge Home Destination Discharge With home care svs and family support Nutrition: Current Status Monitoring Pt s/p R hip fx; s/p IM nailing of R hip 02/03/17. BG initially in upper 200s, but improving into 150s-180s with reintroduction of home oral agents (Actos, Glipizide). Anticipate BGs will improve/ stabilize on home regimen. No new ed needs r/t DM identified. Pt with family earlier today, and sleeping soundly when reapproached. Intake seems adequate - 90-100% of most meals. Liquid BM noted 02/07. Goals: Physical Therapy: Updated Goals Modified independent bed mobility, transfers and ambulation with rolling walker 150ft. Occupational Therapy: Initial Goals Goals to be Completed in (Days 21 days ) Upper Body Bathing Routine Independent Lower Body Bathing Routine Modified Independent with Upper Body Dressing Routine Independent Lower Body Dressing Routine Modified Independent with Toilet Hygeine and Clothing Modified Independent with Management Routine Toilet Transfer Routine Modified Independent with Step-In Shower Transfer Modified Independent with Routine Tub Transfer Routine Modified Independent with Functional Transfers for ADL Modified Independent with Grooming Routine Independent Feeding Routine Independent Nursing: Goals Bowel Goal continent Nutrition Goal adequate Nutrition: Goals Intervention Goals 1. Intake will remain adequate to meet needs for post-op healing 2. BG will remain adequately controlled per inpt parameters 3. Pt will establish regular bowel pattern without diarrhea/constipation Social Work: Goals Discharge Plan return home with home care svs and family support Potential for Family Training pt's is involved and supportive Anticipated Discharge Home Destination Discharge With home care svs and family support Care Plan: Care Plan ADL's - Improve/Maintain Start: 02/06/17 14:39 Freq: QSHIFT Status: Active Target: Activity Type Activity Date Activity User E-Sign Co-Sign Detail Recorded Client Recorded Date Recorded By Document 02/10/17 15:01 [id number] [id number] 02/10/17 15:02 [id number] 02/10/17 15:01 PMRU Outcome: ADL's/ADL Transfers Orders/Interventions Occupational Therapy Evaluation & Treatment Communication Tool in Patient Room Device Yes: EZ stand Patient to receive OT 5x/wk for 60-120 Therex min/day Self Care Management Group Therapy UE/LE ADL's with Assist Yes ADL Transfers with Assist Yes Toileting: Transfers,Clothing Management Yes ,Hygeine w/Assist Light Kitchen/Laundry w/Assist Yes Progression Toward Outcome/Goals Progressing Outcome/Goals Met Pt. able to stand with min assist x1 and FWW and assist OTS in pulling up underwear and pants. Pt. tolerated therapy, but has c/o of a lot of pain and seems depressed. Cardiovascular- Improve/Maintain Start: 02/05/17 12:25 Freq: QSHIFT Status: Active Target: Activity Type Activity Date Activity User E-Sign Co-Sign Detail Recorded Client Recorded Date Recorded By Document 02/11/17 10:52 [id number] 02/11/17 10:53 [id number] 02/11/17 10:52 PMRU Outcome: Cardiovascular Vital Signs q Shift for 48hrs Then BID Yes Daily Weight Ordered No Current Cardiovascular Outcome/Goal Maintain/ Improve Perfusion Free of Abnormal Cardiac Symptoms Progression Toward Outcome/Goal Progressing DVT Prophylaxis- Improve/Maintain Start: 02/05/17 12:25 Freq: QSHIFT Status: Active Target: Activity Type Activity Date Activity User E-Sign Co-Sign Detail Recorded Client Recorded Date Recorded By Document 02/11/17 10:52 [id number] 02/11/17 10:53 [id number] 02/11/17 10:52 PMRU Outcome: DVT Prophylaxis Outcome/Goals Remains Free of DVT Complies with DVT Prophylaxis /Treatment Demonstrates Knowledge of DVT Prevention/ Treatment TEDS Stockings on Every AM, Off at HS Progression Toward Outcome/Goals Progressing Discharge Planning - Improve/Maintain Start: 02/05/17 12:25 Freq: QSHIFT Status: Active Target: Activity Type Activity Date Activity User E-Sign Co-Sign Detail Recorded Client Recorded Date Recorded By Document 02/11/17 10:52 [id number] [email or web address] 02/11/17 10:53 [id number] 02/11/17 10:52 PMRU Outcome: Discharge Planning Update Patient Family No Outcome/Goals Demonstrates Understanding of Discharge Plan Progression Toward Outcome/Goals Progressing Education-Improve/Maintain Start: 02/05/17 12:25 Freq: QSHIFT Status: Active Target: Activity Type Activity Date Activity User E-Sign Co-Sign Detail Recorded Client Recorded Date Recorded By Document 02/11/17 10:52 [id number] [email or web address] 02/11/17 10:53 [id number] 02/11/17 10:52 PMRU Outcome: Education Outcome/Goals Encourage Questions Progression Toward Outcome/Goals Progressing /GI-Improve/Maintain Start: 02/05/17 12:25 Freq: QSHIFT Status: Active Target: Activity Type Activity Date Activity User E-Sign Co-Sign Detail Recorded Client Recorded Date Recorded By Document 02/11/17 10:52 [id number] 02/11/17 10:53 [id number] 02/11/17 10:52 PMRU Outcome: Genitourinary/ Gastrointestinal Genitourinary- Outcome/Goals Maintain/ Achieve Urinary Continence Remain Free of Hospital- Acquired UTI Gastrointestinal-Outcome/Goals Maintain/ Achieve Bowel Regularity in Accordance with Pt's Baseline Prevent Constipation Laxatives as Ordered Progression Toward Outcome/Goals - Progressing Progression Toward Outcome/Goals - GI Progressing Outcome/Goals Met Comment weaver removed one void in am unable to measure Medication Administration Start: 02/05/17 12:25 Freq: QSHIFT Status: Active Target: Activity Type Activity Date Activity User E-Sign Co-Sign Detail Recorded Client Recorded Date Recorded By Document 02/11/17 10:52 [id number] 02/11/17 10:53 [id number] 02/11/17 10:52 PMRU Outcome: Medication Administration Assess Patient Knowledge/Teach Med Yes Education for all Meds Outcome/Goals Patient Independent with Medication Administration at Home Demonstrates Understanding Progression Towards Outcome/Goals Progressing Is Patient Going Home on Lovenox? No Metabolic Status- Improve/Maintain Start: 02/05/17 12:25 Freq: QSHIFT Status: Active Target: Activity Type Activity Date Activity User E-Sign Co-Sign Detail Recorded Client Recorded Date Recorded By Document 02/11/17 10:52 [id number] 02/11/17 10:53 [id number] 02/11/17 10:52 PMRU Outcome: Metabolic Status Have Fingersticks Been Ordered Yes Fingerstick Order Frequency AC & HS Outcome/Goals Maintain/ Improve Metabolic Status Demonstrate Knowledge of Prevention/ Treatment of Metabolic Imbalances Progression Toward Outcome/Goals Progressing Mobility- Improve/Maintain Start: 02/05/17 11:36 Freq: QSHIFT Status: Active Target: Activity Type Activity Date Activity User E-Sign Co-Sign Detail Recorded Client Recorded Date Recorded By Document 02/07/17 18:08 [id number] 02/07/17 18:08 [id number] 02/07/17 18:08 PMRU Outcome: Mobility Physical Therapy Evaluation and Yes Treatment Activity OOB with Assistance Yes: 50% WBing RLE Device Yes Assistance Yes Patient to be seen 5x/wk for 60-120 min/ Therex day for: Mobility Training Gait Training Balance Outcome/Goals Maintain/ Achieve Baseline Mobility Status Improve Mobility Status Demonstrates Proper Use of Assistive Devices Free from Complications of Immobility Progression Toward Outcome/Goals Progressing Bed Mobility Yes: Independent Transfers Yes: Modified Independent with RW Gait x ft Yes: Modified Independent 150 ' with RW Up/Down Stairs Yes: Independent 2 steps 1 rail, straight cane With HEP Yes: Independent Goal Comment Mantain 50% WB RLE 100% of time Pain/Comfort- Improve/Maintain Start: 02/05/17 12:25 Freq: QSHIFT Status: Active Target: Activity Type Activity Date Activity User E-Sign Co-Sign Detail Recorded Client Recorded Date Recorded By Document 02/11/17 10:52 [id number] 02/11/17 10:53 [id number] 02/11/17 10:52 PMRU Outcome: Pain/Comfort Outcome/Goals Demonstrates Knowledge and Use of Available Comfort Measures Achieves Acceptable Comfort/Pain Level as Determined by Patient/Condit Maintain Comfort Level Allowing Patient to Fully Participate in Rehab Progression Toward Outcome/Goals Progressing Outcome/Goals Met Comment pt given 1 percocet Respiratory - Improve/Maintain Start: 02/05/17 12:25 Freq: QSHIFT Status: Active Target: Activity Type Activity Date Activity User E-Sign Co-Sign Detail Recorded Client Recorded Date Recorded By Document 02/11/17 10:52 [id number] [email or web address] 02/11/17 10:53 [id number] 02/11/17 10:52 PMRU Outcome: Respiratory Does Patient Have a Trach No Outcome/Goals Maintain/ Improve Baseline Respiratory Status Maintain/ Improve Activity Tolerance Prevent Pneumonia/ Atelectasis Progression Toward Outcome/Goals Progressing Safety- Improve/Maintain Start: 02/05/17 12:25 Freq: QSHIFT Status: Active Target: Activity Type Activity Date Activity User E-Sign Co-Sign Detail Recorded Client Recorded Date Recorded By Document 02/11/17 10:52 [id number] 02/11/17 10:53 [id number] 02/11/17 10:52 PMRU Outcome: Safety Outcome/Goals Cooperates with Safety Measures for Least Restrictive Environment Prevent Falls/ Injury Progression Toward Outcome/Goals Progressing Skin- Improve/Maintain Start: 02/05/17 12:25 Freq: QSHIFT Status: Active Target: Activity Type Activity Date Activity User E-Sign Co-Sign Detail Recorded Client Recorded Date Recorded By Document 02/11/17 10:52 [id number] 02/11/17 10:53 [id number] 02/11/17 10:52 PMRU Outcome: Skin Skin Risk Level Medium Skin Orders Dressing Change Turn/Position q2hr While in Bed Outcome/Goals Free from Decubitus Surgical Incisions Healing Progression Toward Outcome/Goals Progressing Medicine Note: Length of Stay: [2.5 weeks] Anticipated Discharge Destination: Home Tentative Discharge Date: [02/28/17] Discharged to: [home]
[2017-02-11] MEDS: Acetaminophen TAB* 325 MG PO SCH ×2 (16:56→20:58)
[2017-02-11] MEDS: Atorvastatin* 20 MG TAB PO SCH (16:56)
[2017-02-11] MEDS: Senna TAB PO SCH (19:49)
[2017-02-12 06:32] LABS: Hematocrit 27 % (35-47); Hemoglobin 8.8 g/dl (12.0-16.0); Mean Corpuscular HGB Conc 33 g/dl (31-36); Mean Corpuscular Hemoglobin 33 pg (27-31); Mean Corpuscular Volume 99 fL (80-97); Mean Platelet Volume 8 um3 (7.4-10.4); Red Blood Count 2.69 10^6/ul (4.0-5.4); Red Cell Distribution Width 16 % (10.5-15); White Blood Count 14.4 10^3/ul (3.5-10.8)
[2017-02-12 06:36] LABS: Add Diff/Slide Review? Slide Review Added; Comments Flag Yes
[2017-02-12] MEDS: Insulin LISPRO* 1 UNITS UNIT SUBCUT SCH ×4 (08:03→21:45)
[2017-02-12] MEDS: Dronedarone TAB* 400 MG PO SCH (08:04)
[2017-02-12] MEDS: Apixaban* 5 MG TAB PO SCH ×2 (08:05→21:41)
[2017-02-12] MEDS: Metoprolol Tartrate TAB* 25 MG PO SCH ×2 (08:05→21:41)
[2017-02-12] MEDS: Pioglitazone TAB* 30 MG PO SCH (08:05)
[2017-02-12] MEDS: oxyCODONE/Acetamin 5/325 MG* TAB PO PRN (08:05)
[2017-02-12] MEDS: glipiZIDE TAB.XL* 2.5 MG PO SCH (08:05)
[2017-02-12] MEDS: Acetaminophen TAB* 325 MG PO SCH ×4 (08:05→21:42)
[2017-02-12] MEDS: Docusate CAP* 100 MG PO SCH ×2 (08:07→21:45)
[2017-02-12] MEDS: Atorvastatin* 20 MG TAB PO SCH (17:36)
[2017-02-12] MEDS: Methocarbamol TAB* 500 MG PO PRN (21:43)
[2017-02-12] MEDS: Senna TAB PO SCH (21:45)
[2017-02-13] MEDS ORDERED: oxyCODONE/Acetamin 5/325 MG* TAB PO PRN ×3 (06:10→13:03)
[2017-02-13] MEDS ORDERED: oxyCODONE/Acetamin 5/325 MG* TAB ONE (06:13)
[2017-02-13] MEDS: Metoprolol Tartrate TAB* 25 MG PO SCH ×2 (07:42→20:12)
[2017-02-13] MEDS: Acetaminophen TAB* 325 MG PO SCH ×4 (07:42→20:13)
[2017-02-13] MEDS: Insulin LISPRO* 1 UNITS UNIT SUBCUT SCH ×4 (07:42→20:13)
[2017-02-13] MEDS: Apixaban* 5 MG TAB PO SCH ×2 (07:42→20:12)
[2017-02-13] MEDS: glipiZIDE TAB.XL* 2.5 MG PO SCH (07:42)
[2017-02-13] MEDS: Docusate CAP* 100 MG PO SCH ×2 (07:42→20:13)
[2017-02-13] MEDS: Pioglitazone TAB* 30 MG PO SCH (07:42)
[2017-02-13] MEDS: Dronedarone TAB* 400 MG PO SCH (07:42)
--- NOTE | 2017-02-13 09:44 | PN ---
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 MF diagnosed in 04/2015 after work up for rashes x several months. started on Valchlor by Dr. Ayon in [place] plus steroid cream. She used this x 1 yr but it became too expensive and so stopped and did not follow up with Dr. Adams. She denies any change in the rash over the last year. she denies any new B symptoms (fevers, night sweats, weight loss) or adenopathy. She fell gardening ~10 days ago and underwent right ORIF. Postoperatively her WBC has been elevated in the 12-14k range with a left shift. Her Hb is in the 8-9 range postoperatively and she has normal platelets. CXR and urinalysis on admission to [facility] were normal. Subjective: She reports that she was feeling well until this am when she got up to do something and felt a "pop" in her right hip followed by marked pain. She had an xray earlier with read pending. She denies dysuria, cough, fevers, chills, nausea, or vomiting. Objective: Vital Signs Temp Pulse Resp BP Pulse Ox 98.7 F 75 18 119/40 100 02/13/17 05:53 02/13/17 05:53 02/13/17 07:46 02/13/17 05:53 02/13/17 05:53 lying flat in bed in nad perr eomi op moist poor dentition CTA anteriorly s1 s2 nl soft obese nt no le edema right hip incision site clean and intact, no erythema, mild edema did not ambulate skin exam limited by inability to turn fully but mild skin darkening posterior hip fold on left Laboratory Results - last 24 hr 02/12/17 02/12/17 02/12/17 11:19 16:45 20:03 POC Glucose (mg/dL) 128 H 181 H 202 H 02/13/17 07:33 POC Glucose (mg/dL) 174 H Laboratory Tests 02/07/17 02/08/17 02/10/17 05:58 06:39 06:05 WBC 12.7 H 13.8 H 13.1 H Hgb MCV Plt Count Neut % (Auto) Lymph % (Auto) 02/12/17 06:17 WBC 14.4 H Hgb 8.8 L MCV 99 H Plt Count 281 Neut % (Auto) 69.6 Lymph % (Auto) 19.7 L Acetaminophen (Tylenol Tab*) 650 mg PO QID [facility] Last Admin: 02/13/17 07:42 Dose: 650 mg Apixaban (Eliquis*) 5 mg PO BID [facility] Last Admin: 02/13/17 07:42 Dose: 5 mg Atorvastatin Calcium (Lipitor*) 20 mg PO 1700 [facility] Last Admin: 02/12/17 17:36 Dose: 20 mg Dextrose (D50w Syringe 50 Ml*) 12.5 gm IV PUSH .FOR FS < 60 - SS PRN PRN Reason: FS < 60 Docusate Sodium (Colace Cap*) 100 mg PO BID [facility] Last Admin: 02/13/17 07:42 Dose: 100 mg Dronedarone (Multaq Tab*) 400 mg PO DAILY [facility] Last Admin: 02/13/17 07:42 Dose: 400 mg Glipizide (Glucotrol Xl*) 2.5 mg PO DAILY [facility] Last Admin: 02/13/17 07:42 Dose: 2.5 mg Insulin Human Lispro (Humalog*) 0 - 10 units SUBCUT ACHS [facility] PRN Reason: Protocol Last Admin: 02/13/17 07:42 Dose: 2 units Magnesium Hydroxide (Milk Of Magnesia Liq*) 30 ml PO Q6H PRN PRN Reason: CONSTIPATION Last Admin: 02/06/17 21:20 Dose: 30 ml Methocarbamol (Robaxin Tab*) 500 mg PO QID PRN PRN Reason: muscle spasm Last Admin: 02/12/17 21:43 Dose: 500 mg Metoprolol Tartrate (Lopressor Tab*) 25 mg PO BID [facility] Last Admin: 02/13/17 07:42 Dose: 25 mg Oxycodone/Acetaminophen (Percocet 5/325 Tab*) 1 tab PO Q6H PRN PRN Reason: PAIN Last Admin: 02/13/17 06:14 Dose: 1 tab Oxycodone/Acetaminophen (Percocet 5/325 Tab*) 2 tab PO Q4H PRN PRN Reason: PAIN Pioglitazone HCl (Actos Tab*) 30 mg PO DAILY [facility] Last Admin: 02/13/17 07:42 Dose: 30 mg Senna (Senokot Tab*) 2 tab PO BEDTIME [facility] Last Admin: 02/12/17 21:45 Dose: Not Given Assessment: 81 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 I do not suspect that her leukocytosis is related to her lymphoma diagnosis, however I am awaiting a new peripheral smear to evaluate. I am more suspicious for underlying infection or inflammation, and have ordered ESR and CRP in addition to the smear this am. Her anemia is most certainly acute blood loss anemia from her surgery and as she is asymptomatic does not need to be addressed further unless she falls further. She should follow up with Dr. Adams on discharge regarding routine follow up of her lymphoma, which does appear to be fairly quiescent at this time.
[2017-02-13 10:40] LABS: Hematocrit 27 % (35-47); Hemoglobin 8.8 g/dl (12.0-16.0); Mean Corpuscular HGB Conc 33 g/dl (31-36); Mean Corpuscular Hemoglobin 32 pg (27-31); Mean Corpuscular Volume 99 fL (80-97); Mean Platelet Volume 8 um3 (7.4-10.4); Red Blood Count 2.74 10^6/ul (4.0-5.4); Red Cell Distribution Width 16 % (10.5-15); White Blood Count 16.2 10^3/ul (3.5-10.8)
[2017-02-13 10:42] LABS: Add Diff/Slide Review? Slide Review Added; Comments Flag Yes
[2017-02-13 11:31] LABS: Erythrocyte Sed Rate 54 mm/Hr (0-40)
--- NOTE | 2017-02-13 15:39 | PN ---
Progress Note - Progress Note Date of Service: 02/13/17 SOAP: Subjective: 81 y/o female s/p Objective: [] Laboratory Results - last 24 hr 02/12/17 02/12/17 02/13/17 16:45 20:03 07:33 WBC RBC Hgb Hct MCV MCH MCHC RDW Plt Count MPV Neut % (Auto) Lymph % (Auto) Rowan % (Auto) Eos % (Auto) Baso % (Auto) Absolute Neuts (auto) Absolute Lymphs (auto) Absolute Monos (auto) Absolute Eos (auto) Absolute Basos (auto) Absolute Nucleated RBC Nucleated RBC % ESR POC Glucose (mg/dL) 181 H 202 H 174 H Lactate Dehydrogenase C-React Prot High Sens 02/13/17 02/13/17 02/13/17 10:13 10:13 11:19 WBC 16.2 H RBC 2.74 L Hgb 8.8 L Hct 27 L MCV 99 H MCH 32 H MCHC 33 RDW 16 H Plt Count 296 MPV 8 Neut % (Auto) 75.1 Lymph % (Auto) 17.0 L Rowan % (Auto) 6.5 Eos % (Auto) 1.2 Baso % (Auto) 0.2 Absolute Neuts (auto) 12.2 H Absolute Lymphs (auto) 2.8 Absolute Monos (auto) 1.1 H Absolute Eos (auto) 0.2 Absolute Basos (auto) 0 Absolute Nucleated RBC 0.01 Nucleated RBC % 0 ESR 54 H POC Glucose (mg/dL) 214 H Lactate Dehydrogenase 197 C-React Prot High Sens 52.19 Assessment: [] Plan: [] Acetaminophen (Tylenol Tab*) 650 mg PO QID [facility] Last Admin: 02/13/17 13:00 Dose: 650 mg Apixaban (Eliquis*) 5 mg PO BID [facility] Last Admin: 02/13/17 07:42 Dose: 5 mg Atorvastatin Calcium (Lipitor*) 20 mg PO 1700 [facility] Last Admin: 02/12/17 17:36 Dose: 20 mg Dextrose (D50w Syringe 50 Ml*) 12.5 gm IV PUSH .FOR FS < 60 - SS PRN PRN Reason: FS < 60 Docusate Sodium (Colace Cap*) 100 mg PO BID [facility] Last Admin: 02/13/17 07:42 Dose: 100 mg Dronedarone (Multaq Tab*) 400 mg PO DAILY [facility] Last Admin: 02/13/17 07:42 Dose: 400 mg Glipizide (Glucotrol Xl*) 2.5 mg PO DAILY [facility] Last Admin: 02/13/17 07:42 Dose: 2.5 mg Insulin Human Lispro (Humalog*) 0 - 10 units SUBCUT ACHS [facility] PRN Reason: Protocol Last Admin: 02/13/17 11:59 Dose: 4 units Magnesium Hydroxide (Milk Of Magnesia Liq*) 30 ml PO Q6H PRN PRN Reason: CONSTIPATION Last Admin: 02/06/17 21:20 Dose: 30 ml Methocarbamol (Robaxin Tab*) 500 mg PO QID PRN PRN Reason: muscle spasm Last Admin: 02/12/17 21:43 Dose: 500 mg Metoprolol Tartrate (Lopressor Tab*) 25 mg PO BID [facility] Last Admin: 02/13/17 07:42 Dose: 25 mg Oxycodone/Acetaminophen (Percocet 5/325 Tab*) 2 tab PO Q4H PRN PRN Reason: PAIN - SEVERE Last Admin: 02/13/17 11:02 Dose: 1 tab Oxycodone/Acetaminophen (Percocet 5/325 Tab*) 1 tab PO Q4H PRN PRN Reason: PAIN - MODERATE Pioglitazone HCl (Actos Tab*) 30 mg PO DAILY [facility] Last Admin: 02/13/17 07:42 Dose: 30 mg Senna (Senokot Tab*) 2 tab PO BEDTIME [facility] Last Admin: 02/12/17 21:45 Dose: Not Given
--- NOTE | 2017-02-13 15:43 | PN ---
Progress Note - Progress Note Date of Service: 02/13/17 SOAP: Subjective: 81 y/o female s/p R hip fx 02/01, s/p R hip IM nailling 02/03. Patient recovering in PMRU, complains for continued thigh pain, near knee. No pain around hip or with movement of hip. Afebrile, VSS. Objective: General- Well appearing, NAD, AO MSK- sharmin in place over right thigh with distal 2 incisions C/D/I. incision over hip with minimal serous drainage noted, minimal erythema, minimal edeam around incision. ALl incisions non-tender to touch. No tenderness with deep palpation of R hip. tenderness to palpation over R anterior distal thigh laterally, no bruising/ swelling noted. + DF/PF sensation grossly intact. 2+ PT pulses R side, mild edema b/l LEs Vital Signs Temp 98.7 F 02/13/17 05:53 Pulse 75 02/13/17 05:53 Resp 18 02/13/17 13:01 BP 119/40 02/13/17 05:53 Pulse Ox 100 02/13/17 05:53 Intake & Output 02/12/17 02/13/17 02/13/17 18:59 06:59 18:59 Intake Total 214 Balance 214 Intake: Oral 214 Other: # Bowel Movements 1 Estimated Stool Amount Medium # Voids 1 1 Assessment: 81 y/o female s/p R hip fx 02/01, s/p R hip IM nailling 02/03. Plan: - Leucoytosis- repeat UA, continue to monitor. Possible CT imaging if worsening. Dr. Paulino following. Wound cultures from hip site. - Continue PT- partial weight bearing R side Active Medications Generic Name Dose Route Start Last Admin Trade Name Freq PRN Reason Stop Dose Admin Acetaminophen 650 mg 02/11/17 17:00 02/13/17 13:00 Tylenol Tab* PO 650 mg QID [facility] Administration Apixaban 5 mg 02/05/17 21:00 02/13/17 07:42 Eliquis* PO 5 mg BID [facility] Administration Atorvastatin Calcium 20 mg 02/06/17 17:00 02/12/17 17:36 Lipitor* PO 20 mg 1700 [facility] Administration Dextrose 12.5 gm 02/05/17 16:31 D50w Syringe 50 Ml* IV PUSH .FOR FS < 60 - SS PRN FS < 60 Docusate Sodium 100 mg 02/05/17 21:00 02/13/17 07:42 Colace Cap* PO 100 mg BID [facility] Administration Dronedarone 400 mg 02/06/17 09:00 02/13/17 07:42 Multaq Tab* PO 400 mg DAILY [facility] Administration Glipizide 2.5 mg 02/07/17 09:00 02/13/17 07:42 Glucotrol Xl* PO 2.5 mg DAILY [facility] Administration Insulin Human Lispro 0 - 10 units 02/05/17 17:00 02/13/17 11:59 Humalog* SUBCUT 4 units ACHS [facility] Administration Protocol Magnesium Hydroxide 30 ml 02/05/17 16:23 02/06/17 21:20 Milk Of Magnesia Liq* PO 30 ml Q6H PRN Administration CONSTIPATION Methocarbamol 500 mg 02/10/17 15:38 02/12/17 21:43 Robaxin Tab* PO 500 mg QID PRN Administration muscle spasm Metoprolol Tartrate 25 mg 02/05/17 21:00 02/13/17 07:42 Lopressor Tab* PO 25 mg BID [facility] Administration Oxycodone/Acetaminophen 2 tab 02/13/17 06:11 02/13/17 11:02 Percocet 5/325 Tab* PO 1 tab Q4H PRN Administration PAIN - SEVERE Oxycodone/Acetaminophen 1 tab 02/13/17 13:03 Percocet 5/325 Tab* PO Q4H PRN PAIN - MODERATE Pioglitazone HCl 30 mg 02/08/17 10:00 02/13/17 07:42 Actos Tab* PO 30 mg DAILY [facility] Administration Senna 2 tab 02/05/17 21:00 02/12/17 21:45 Senokot Tab* PO Not Given BEDTIME [facility]
[2017-02-13] MEDS: Atorvastatin* 20 MG TAB PO SCH (17:09)
--- NOTE | 2017-02-13 17:54 | RAD ---
INDICATION: Increased right hip pain status post ORIF COMPARISON: Intraoperative fluoroscopy dated February 03, 2017 TECHNIQUE: 4 views of the right hip were obtained. FINDINGS: The intramedullary fixation device is anatomically aligned within the cortex of the bone. The subtrochanteric fracture is again seen exhibiting a small degree of displacement. Expected postsurgical changes include skin sharmin. The remaining visualized bones are appropriately aligned. IMPRESSION: Anatomic alignment of right hip prostheses as described above.
[2017-02-13 19:54] LABS: Urine Bacteria Absent (Absent); Urine Bilirubin Negative (Negative); Urine Glucose Negative (Negative); Urine Nitrite Negative (Negative)
[2017-02-13] MEDS: Senna TAB PO SCH (20:15)
--- NOTE | 2017-02-13 22:45 | CONS ---
CC: Cinthia Rodriguez MD; Chiquis Cisneros MD * CONSULTATION REPORT: DATE OF ADMISSION: 02/05/17 DATE OF CONSULT: 02/13/17 PRIMARY CARE PROVIDER: Chiquis Cisneros MD ATTENDING PHYSICIAN: Leroy Trejo MD (dictated by Rhea Jerez NP) PROVIDER REQUESTING CONSULTATION: Cinthia Rodriguez MD REASON FOR CONSULTATION: Persistent leukocytosis. CHIEF COMPLAINT: Right thigh pain. HISTORY OF PRESENT ILLNESS: Ms. East is a 81-year-old female with past medical history significant for non-insulin dependent diabetes, paroxysmal atrial fibrillation, hyperlipidemia, cutaneous T-cell lymphoma, who presented to the emergency room initially on 02/01/17 after falling while gardening at home on to her right hip. The patient presented to the emergency room with limited range of motion of the leg and external rotation and right femur fracture was confirmed with x-ray. The patient underwent an IM nailing of her right proximal femur fracture on 02/03/[address] Singh. Postoperatively, the patient's course was benign. She did have acute blood loss anemia, but required no transfusions. She had her Eliquis resumed. It was felt that the patient had rehabilitation needs and was admitted to [facility] for further rehabilitation. During the patient's stay on rehabilitation, she has been continuing physical therapy and occupational therapy. She has had some difficulty with physical therapy due to pain in her right thigh. The patient has also been noted to have a persistent leukocytosis that has actually increased during her stay. Today, her white blood cell count is 16.2. The patient has been afebrile during her stay. On 02/07/17, she had a workup, which included a urinalysis with no growth. A chest x- ray showed no acute cardiopulmonary disease. Blood cultures with no growth on day 5. It was noted that due to the patient's urine looking dirty on 02/07/17 that she received 2 days worth of Bactrim, but that was discontinued after her urine culture had no growth. The patient was seen in consultation by Dr. Sienna Paulino with Hematology/Oncology, who felt that the patient's leukocytosis could be related to inflammatory or infectious process. She also ordered a new peripheral smear to evaluate for the patient's cutaneous T-cell lymphoma. The Hospitalists were asked to also evaluate the patient due to her persistent leukocytosis. The patient denies any fever, chills, shortness of breath, or chest pain, urinary symptoms such as dysuria or changes in frequency or night sweats. The patient reports a discoloration rash to her left side that his unchanged due to her cutaneous T-cell lymphoma. PAST MEDICAL HISTORY: 1. Non-insulin diabetes mellitus. 2. Paroxysmal atrial fibrillation. 3. Hyperlipidemia. 4. Cutaneous T-cell lymphoma. PAST SURGICAL HISTORY: 1. Status post hysterectomy. 2. Status post IM nailing. HOME MEDICATIONS: Include: 1. Glipizide extended release 2.5 mg oral daily. 2. Eliquis 5 mg oral twice daily. 3. Atorvastatin 20 mg oral daily. 4. Multaq 400 mg oral daily. 5. Metoprolol tartrate 25 mg oral twice daily. 6. Triamcinolone cream applied topical daily as needed. 7. Actos 30 mg oral daily. Hospital medications include: 1. Acetaminophen 650 mg oral 4 times daily. 2. Eliquis 5 mg oral twice daily. 3. Atorvastatin 20 mg oral daily. 4. Dextrose 12.5 g IV push as needed for fingersticks. 5. Colace 100 mg oral twice daily. 6. Multaq 400 mg oral daily. 7. Glipizide 2.5 mg oral daily. 8. Lispro insulin 0 to 1 unit sliding scale a.c. and h.s. subcutaneously. 9. Milk of magnesia 30 mL oral every 6 hours as needed for constipation. 10. Robaxin 500 mg oral 4 times daily as needed for muscle spasms. 11. Metoprolol tartrate 25 mg oral twice daily. 12. Percocet 5/325 mg 1 tablet oral every 4 hours as needed for moderate pain. 13. Percocet 5/325 mg 2 tablets oral every 4 hours as needed for severe pain. 14. Actos 30 mg oral daily. 15. Senna 2 tablets oral daily at bedtime. ALLERGIES: No known drug allergies. FAMILY HISTORY: The patient denies a family history of coronary artery disease. The patient's father had a history of cerebrovascular accident. The patient's mother had a history of diabetes mellitus and breast cancer. The patient's sister with a history of esophageal cancer. SOCIAL HISTORY: The patient is a nonsmoker and denies recreational drug use. She drinks 1 drink daily. She lives with her . Her , Kennedi East, will be her surrogate decision maker in the event that she is unable to make decisions for herself. REVIEW OF SYSTEMS: I performed a 14-point review of systems. All the pertinent positives and negatives are mentioned in the history of present illness. The remaining review of systems is negative. PHYSICAL EXAMINATION: Vital Signs: Temperature 98.6, heart rate 74, respiratory rate 18, O2 sat 99% on room air, blood pressure 146/30. General Appearance: The patient is alert, pleasant, appears to be in no acute distress. HEENT: Normocephalic, atraumatic. Pupils are equal and reactive to light. Extraocular movements are intact. Respiratory: There is no accessory muscle use and the lungs are clear to auscultation bilaterally. Cardiovascular : Regular rate and rhythm. S1 and S2 present. There are no murmurs, rubs, or gallops heard. Abdomen: Soft, nontender, nondistended. There are bowel sounds present x4. Extremities: There is mild right lower extremity edema. DP and PT pulses are 2+ and symmetric. Musculoskeletal: There is no clubbing or cyanosis noted. The patient exhibits good strength in all extremities. Neurological: The patient is alert and oriented x4. Cranial nerves II through XII are grossly intact. Psychological: The patient is calm and cooperative. Skin: There are no rashes or abnormality seen. The patient has 3 incisions to her right thigh that are all well approximated. The proximal incision has mild erythema and minimal serous drainage. The patient also has mild skin darkening on her left side. DIAGNOSTIC STUDIES/LABORATORY DATA: Labs from 02/10/17: Sodium 134, potassium 4.6, chloride 102, carbon dioxide 30, BUN 20, creatinine 0.88, glucose 139. CBC from today, white blood cell count 16.2, hemoglobin 8.8, hematocrit 27, and platelet count 296. Chest x-ray from 02/07/17, radiologist impression: No cardiopulmonary disease. Urinalysis from 02/07/17 has 1+ proteins, trace ketones, 3+ blood, leukocyte esterase 2+, wbc's 2+, rbc's 3+, squamous epithelial cells present. This urine culture had no growth. The patient has blood cultures from 02/07/17 with no growth on day 5. IMPRESSION: Ms. East is a 81-year-old female with past medical history significant for paroxysmal atrial fibrillation, non-insulin dependent diabetes mellitus, hyperlipidemia, and cutaneous T-cell lymphoma who is a patient on PMRU after sustaining a right proximal femur fracture and underwent and IM nailing of the proximal femur fracture on 02/03/17. ASSESSMENT/PLAN: 1. Status post IM nail of the right proximal femur. Management per Physiatry. The patient is partial weightbearing. Continue OT and PT. 2. Leukocytosis. The patient has had persistent leukocytosis during her stay. Today is the highest that it has been throughout her stay at 16.2. The patient is afebrile. States she feels well. She was not ill appearing. She had a urinalysis and urine culture from 02/07/17 that showed no growth. She also had blood cultures on 02/07/17 with no growth on day 5. She was seen in consultation by Heme/Onc and felt this could be infection versus inflammatory response. She had a chest x-ray on 02/07/17 showing no cardiopulmonary disease. It is also to note that the patient was on 2 days of Bactrim after the last urine culture on 02/06/17 showed dirty looking urine. We will recheck a urinalysis today. The patient's surgical incisions look well with minimal erythema and minimal serous drainage. We will also get a wound culture. The patient was also seen Orthopedic Surgery today to evaluate her wounds. 3. Acute blood loss anemia. The patient is asymptomatic and has no indications for need of a blood transfusions at this time. 4. Localized cutaneous T-cell lymphoma. The patient should follow up with Dr. Adams at discharge. 5. Diabetes mellitus. The patient's glucoses have been 120s to 200s. She will be continued on her home Actos, glipizide, and lispro sliding scale. 6. Urinary retention. The patient has had her catheter out since 02/11/17 and has had no issues with recurrent urinary retention at this time. 7. History of paroxysmal atrial fibrillation. The patient will be continued on her Multaq and Lopressor in addition to Eliquis. 8. Fluids, electrolytes, and nutrition. The patient will be on a consistent carbohydrate diet. 9. Code status. Full code. 10. DVT prophylaxis. The patient will be on Eliquis. 11. Disposition. Inpatient with disposition per Physiatry. TIME SPENT: Time for this consultation was approximately 60 minutes, greater than half of that was spent with the patient discussing medications, past medical history, the events leading up to her arrival today, course of hospitalization, and performing a physical examination. The case has been reviewed with the attending doctor, Dr. Trejo, who agrees with the plan of care. Reviewed by JOLANTA DUBOIS 02/14/17 [id number] [id number]/[facility] #: [id number] [place]
[2017-02-14 07:07] LABS: BUN/Creatinine Ratio 24.1 (8-20); Calcium 9.2 mg/dL (8.6-10.3); EGFR African American 90.3 (>60); EGFR Non-African American 70.2 (>60); Globulin 2.4 g/dL (2-4); Potassium 4.9 mmol/L (3.5-5.0); Total Bilirubin 1.2 mg/dL (0.2-1.0); Total Protein 5.4 g/dL (6.4-8.9)
[2017-02-14] MEDS: Metoprolol Tartrate TAB* 25 MG PO SCH ×2 (08:47→21:33)
[2017-02-14] MEDS: Docusate CAP* 100 MG PO SCH ×2 (08:47→21:36)
[2017-02-14] MEDS: Apixaban* 5 MG TAB PO SCH ×2 (08:47→21:33)
[2017-02-14] MEDS: Pioglitazone TAB* 30 MG PO SCH (08:47)
[2017-02-14] MEDS: Dronedarone TAB* 400 MG PO SCH (08:48)
[2017-02-14] MEDS: Acetaminophen TAB* 325 MG PO SCH ×4 (08:48→21:33)
[2017-02-14] MEDS: glipiZIDE TAB.XL* 2.5 MG PO SCH (08:49)
[2017-02-14] MEDS: Insulin LISPRO* 1 UNITS UNIT SUBCUT SCH ×4 (08:50→21:34)
[2017-02-14] MEDS: HYDROcodone/ACETAMIN 5-325 MG* 1 TAB PO PRN (13:15)
--- NOTE | 2017-02-14 16:08 | PN ---
Subjective Date of Service: 02/14/17 Interval History: Patient seen and examined at bedside. Pt states that she feels better today then she did yesterday. Denies fever, chills, shortness of breath, chest discomfort, N/v/D or urinary symptoms. Family History: Unchanged from Admission Social History: Unchanged from Admission Past Medical History: Unchanged from Admission Objective Active Medications: Acetaminophen (Tylenol Tab*) 650 mg PO QID [facility] Hydrocodone Bitart/Acetaminophen ([place] 5-325 Tab*) 1 tab PO Q4H PRN Reason: PAIN Hydrocodone Bitart/Acetaminophen ([place] 5-325 Tab*) 2 tab PO Q4H PRN Reason: severe Pain Apixaban (Eliquis*) 5 mg PO BID [facility] Atorvastatin Calcium (Lipitor*) 20 mg PO 1700 [facility] Dextrose (D50w Syringe 50 Ml*) 12.5 gm IV PUSH .FOR FS < 60 - SS PRN Reason: FS < 60 Docusate Sodium (Colace Cap*) 100 mg PO BID [facility] Dronedarone (Multaq Tab*) 400 mg PO DAILY [facility] Glipizide (Glucotrol Xl*) 2.5 mg PO DAILY [facility] Insulin Human Lispro (Humalog*) 0 - 10 units SUBCUT ACHS [facility] Reason: Protocol Magnesium Hydroxide (Milk Of Magnesia Liq*) 30 ml PO Q6H PRN Reason: CONSTIPATION Methocarbamol (Robaxin Tab*) 500 mg PO QID PRN Reason: muscle spasm Metoprolol Tartrate (Lopressor Tab*) 25 mg PO BID [facility] Pioglitazone HCl (Actos Tab*) 30 mg PO DAILY [facility] Senna (Senokot Tab*) 2 tab PO BEDTIME [facility] Vital Signs 02/13/17 02/14/17 02/14/17 20:00 06:34 13:15 Temperature 98.4 F Pulse Rate 79 Respiratory 18 18 18 Rate Blood Pressure 134/39 (mmHg) O2 Sat by Pulse 98 Oximetry Oxygen Devices in Use Now: None Appearance: NAD, laying in recliner chair Ears/Nose/Mouth/Throat: Mucous Membranes Moist Respiratory: Symmetrical Chest Expansion and Respiratory Effort, Clear to Auscultation Cardiovascular: NL Sounds; No Murmurs; No JVD, - - Heart rate irregular Extremities: No Edema Skin: No Rash or Ulcers Neurological: Alert and Oriented x 3, NL Muscle Strength and Tone Nutrition: Taking PO's Result Diagrams: 02/13/17 10:13 02/14/17 06:41 Microbiology and Other Data: Microbiology 02/13/17 16:30 Gram Stain - Final Hip Right 02/07/17 10:39 Aerobic Blood Culture - Final Blood Venous No Growth Day 5 Anaerobic Blood Culture - Final No Growth Day 5 Blood Culture - Final 02/07/17 10:39 Aerobic Blood Culture - Final Blood Venous No Growth Day 5 Anaerobic Blood Culture - Final No Growth Day 5 Blood Culture - Final 02/07/17 12:09 Urine Culture - Final Urine No Growth (<1,000 CFU/mL) 02/06/17 04:20 Urine Culture - Final Urine Assess/Plan/Problems-Billing Assessment: - Patient Problems (1) Fracture of proximal end of right femur Code(s): S72.001A - FRACTURE OF UNSP PART OF NECK OF RIGHT FEMUR, INIT SNOMED Code(s): 288105319 Comment: - S/P IM nail - Management per Physiatry - Parital weight bearing as tolerated - Continue PT/OT (2) Leukocytosis Code(s): D72.829 - ELEVATED WHITE BLOOD CELL COUNT, UNSPECIFIED SNOMED Code(s) : 956744557 Comment: - Afebrile - UC and blood cultures from 02/07 no growth. No cardiopulmonary disease on chest xray from 02/07 - Urinalysis 02/13 WNL - Wound culture from 02/13 pending - Will recheck CBC on 02/16 or sooner if she develops a fever (3) Acute blood loss anemia Code(s): D62 - ACUTE POSTHEMORRHAGIC ANEMIA SNOMED Code(s): 823111521 Comment: - Secondary to surgery - Asymptomatic - No indication for a blood transfusion at this time (4) Cutaneous T-cell lymphoma Code(s): C84.A0 - CUTANEOUS T-CELL LYMPHOMA, UNSPECIFIED, UNSPECIFIED SITE SNOMED Code(s): 815789921 Comment: - Followup with Dr. Adams outpatient (5) Urinary retention Code(s): R33.9 - RETENTION OF URINE, UNSPECIFIED SNOMED Code(s): 068110497 Comment: - Resolved (6) Afib Code(s): I48.91 - UNSPECIFIED ATRIAL FIBRILLATION SNOMED Code(s): 92365065 Comment: - Continue Eliquis, Multaq and Metoprolol. (7) Diabetes Code(s): E11.9 - TYPE 2 DIABETES MELLITUS WITHOUT COMPLICATIONS SNOMED Code(s) : 94362980 Comment: - Glucose 100-170's - Continue lispro SS, actos and glipizide (8) DVT prophylaxis Code(s): [id number] - SNOMED Code(s): 032651904 Comment: - Yoav (9) Full code status Code(s): Z78.9 - OTHER SPECIFIED HEALTH STATUS SNOMED Code(s): 401540250 Status and Disposition: Inpatient. Disposition per Physiatry.
[2017-02-14] MEDS: Atorvastatin* 20 MG TAB PO SCH (16:49)
[2017-02-14] MEDS: Senna TAB PO SCH (21:36)
[2017-02-15] MEDS: Insulin LISPRO* 1 UNITS UNIT SUBCUT SCH ×4 (08:12→21:13)
[2017-02-15] MEDS: Docusate CAP* 100 MG PO SCH ×2 (08:51→21:15)
[2017-02-15] MEDS: Dronedarone TAB* 400 MG PO SCH (08:51)
[2017-02-15] MEDS: Metoprolol Tartrate TAB* 25 MG PO SCH ×2 (08:51→21:13)
[2017-02-15] MEDS: Apixaban* 5 MG TAB PO SCH ×2 (08:51→21:13)
[2017-02-15] MEDS: glipiZIDE TAB.XL* 2.5 MG PO SCH (08:51)
[2017-02-15] MEDS: Acetaminophen TAB* 325 MG PO SCH ×4 (08:51→21:13)
[2017-02-15] MEDS: Pioglitazone TAB* 30 MG PO SCH (08:51)
--- NOTE | 2017-02-15 13:50 | PN ---
Subjective Date of Service: 02/15/17 Interval History: Patient seen and examined at bedside. Pt states that she continues to feel well. Denies fever, chills, shortness of breath, chest discomfort, N/V/D. Family History: Unchanged from Admission Social History: Unchanged from Admission Past Medical History: Unchanged from Admission Objective Active Medications: Acetaminophen (Tylenol Tab*) 650 mg PO QID [facility] Hydrocodone Bitart/Acetaminophen ([place] 5-325 Tab*) 1 tab PO Q4H PRN Reason: PAIN Hydrocodone Bitart/Acetaminophen ([place] 5-325 Tab*) 2 tab PO Q4H PRN Reason: severe Pain Apixaban (Eliquis*) 5 mg PO BID [facility] Atorvastatin Calcium (Lipitor*) 20 mg PO 1700 [facility] Dextrose (D50w Syringe 50 Ml*) 12.5 gm IV PUSH .FOR FS < 60 - SS PRN Reason: FS < 60 Docusate Sodium (Colace Cap*) 100 mg PO BID [facility] Dronedarone (Multaq Tab*) 400 mg PO DAILY [facility] Glipizide (Glucotrol Xl*) 2.5 mg PO DAILY [facility] Insulin Human Lispro (Humalog*) 0 - 10 units SUBCUT ACHS [facility] Reason: Protocol Magnesium Hydroxide (Milk Of Magnesia Liq*) 30 ml PO Q6H PRN Reason: CONSTIPATION Methocarbamol (Robaxin Tab*) 500 mg PO QID PRN Reason: muscle spasm Metoprolol Tartrate (Lopressor Tab*) 25 mg PO BID [facility] Pioglitazone HCl (Actos Tab*) 30 mg PO DAILY [facility] Senna (Senokot Tab*) 2 tab PO BEDTIME [facility] Vital Signs 02/14/17 02/14/17 02/14/17 15:15 18:07 18:56 Temperature 98.1 F Pulse Rate 80 Respiratory 18 20 Rate Blood Pressure 111/30 (mmHg) O2 Sat by Pulse 98 100 Oximetry 02/15/17 02/15/17 05:37 05:49 Temperature 98.0 F Pulse Rate 80 Respiratory 18 Rate Blood Pressure 117/39 108/51 (mmHg) O2 Sat by Pulse 98 Oximetry Oxygen Devices in Use Now: None Appearance: NAD, sitting up in a chair Eyes: PERRLA Ears/Nose/Mouth/Throat: Mucous Membranes Moist Respiratory: Symmetrical Chest Expansion and Respiratory Effort, Clear to Auscultation Cardiovascular: NL Sounds; No Murmurs; No JVD, RRR Abdominal: NL Sounds; No Tenderness; No Distention Extremities: No Edema Skin: No Rash or Ulcers Neurological: Alert and Oriented x 3, NL Muscle Strength and Tone Nutrition: Taking PO's Result Diagrams: 02/13/17 10:13 02/14/17 06:41 Microbiology and Other Data: Microbiology 02/13/17 16:30 Gram Stain - Final Hip Right 02/07/17 10:39 Aerobic Blood Culture - Final Blood Venous No Growth Day 5 Anaerobic Blood Culture - Final No Growth Day 5 Blood Culture - Final 02/07/17 10:39 Aerobic Blood Culture - Final Blood Venous No Growth Day 5 Anaerobic Blood Culture - Final No Growth Day 5 Blood Culture - Final 02/07/17 12:09 Urine Culture - Final Urine No Growth (<1,000 CFU/mL) 02/06/17 04:20 Urine Culture - Final Urine Assess/Plan/Problems-Billing Assessment: - Patient Problems (1) Fracture of proximal end of right femur Code(s): S72.001A - FRACTURE OF UNSP PART OF NECK OF RIGHT FEMUR, INIT SNOMED Code(s): 425726470 Comment: - S/P IM nail - Management per Physiatry - Parital weight bearing as tolerated - Continue PT/OT (2) Leukocytosis Code(s): D72.829 - ELEVATED WHITE BLOOD CELL COUNT, UNSPECIFIED SNOMED Code(s) : 216735059 Comment: - Afebrile - UC and blood cultures from 02/07 no growth. No cardiopulmonary disease on chest xray from 02/07 - Urinalysis 02/13 WNL, UC with enterococcus faecalis 10-25K - Wound culture from 02/13 - normal ariel - Will recheck CBC in AM (3) Acute blood loss anemia Code(s): D62 - ACUTE POSTHEMORRHAGIC ANEMIA SNOMED Code(s): 723653062 Comment: - Secondary to surgery - Asymptomatic - No indication for a blood transfusion at this time (4) Cutaneous T-cell lymphoma Code(s): C84.A0 - CUTANEOUS T-CELL LYMPHOMA, UNSPECIFIED, UNSPECIFIED SITE SNOMED Code(s): 309694562 Comment: - Followup with Dr. Adams outpatient (5) Urinary retention Code(s): R33.9 - RETENTION OF URINE, UNSPECIFIED SNOMED Code(s): 747268371 Comment: - Resolved (6) Afib Code(s): I48.91 - UNSPECIFIED ATRIAL FIBRILLATION SNOMED Code(s): 00087883 Comment: - Continue Eliquis, Multaq and Metoprolol. (7) Diabetes Code(s): E11.9 - TYPE 2 DIABETES MELLITUS WITHOUT COMPLICATIONS SNOMED Code(s) : 10635015 Comment: - Glucose 120-240's - Continue lispro SS, actos and glipizide (8) DVT prophylaxis Code(s): FJR1195 - SNOMED Code(s): 306320107 Comment: - Eliquis (9) Full code status Code(s): Z78.9 - OTHER SPECIFIED HEALTH STATUS SNOMED Code(s): 957093606 Status and Disposition: Inpatient. Disposition per Physiatry.
[2017-02-15] MEDS: Atorvastatin* 20 MG TAB PO SCH (17:03)
[2017-02-15] MEDS: Senna TAB PO SCH (21:31)
[2017-02-16 06:54] LABS: Comments Flag Yes; Hematocrit 28 % (35-47); Mean Corpuscular HGB Conc 32 g/dl (31-36); Mean Corpuscular Hemoglobin 32 pg (27-31); Mean Corpuscular Volume 100 fL (80-97); Mean Platelet Volume 8 um3 (7.4-10.4); Red Cell Distribution Width 16 % (10.5-15); White Blood Count 14.1 10^3/ul (3.5-10.8)
[2017-02-16 06:55] LABS: Add Diff/Slide Review? Slide Review Added
[2017-02-16 07:15] LABS: Add Path Review? YES; Eosinophils % 1 % (0-6); Hypochromasia 1+; Immature Granulocytes 3 % (0-9); Macrocytosis 1+; Myelocytes % 3 % (0-1); Neutrophil % 78 % (38-83)
[2017-02-16] MEDS: Dronedarone TAB* 400 MG PO SCH (08:07)
[2017-02-16] MEDS: Pioglitazone TAB* 30 MG PO SCH (08:07)
[2017-02-16] MEDS: glipiZIDE TAB.XL* 2.5 MG PO SCH (08:07)
[2017-02-16] MEDS: Metoprolol Tartrate TAB* 25 MG PO SCH ×2 (08:08→20:21)
[2017-02-16] MEDS: Apixaban* 5 MG TAB PO SCH ×2 (08:08→20:21)
[2017-02-16] MEDS: Insulin LISPRO* 1 UNITS UNIT SUBCUT SCH ×4 (08:08→21:11)
[2017-02-16] MEDS: HYDROcodone/ACETAMIN 5-325 MG* 1 TAB PO PRN (08:08)
[2017-02-16] MEDS: Acetaminophen TAB* 325 MG PO SCH ×4 (08:08→20:21)
[2017-02-16] MEDS: Docusate CAP* 100 MG PO SCH ×2 (08:13→21:06)
--- NOTE | 2017-02-16 14:04 | PN ---
Subjective Date of Service: 02/16/17 Interval History: Patient seen and examined at bedside. Pt states that she continues to feel well , denies fever, chills, shortness of breath, chest discomfort, N/V/D. Family History: Unchanged from Admission Social History: Unchanged from Admission Past Medical History: Unchanged from Admission Objective Active Medications: Acetaminophen (Tylenol Tab*) 650 mg PO QID [facility] Hydrocodone Bitart/Acetaminophen ([place] 5-325 Tab*) 1 tab PO Q4H PRN Reason: PAIN Hydrocodone Bitart/Acetaminophen ([place] 5-325 Tab*) 2 tab PO Q4H PRN Reason: severe Pain Apixaban (Eliquis*) 5 mg PO BID [facility] Atorvastatin Calcium (Lipitor*) 20 mg PO 1700 [facility] Dextrose (D50w Syringe 50 Ml*) 12.5 gm IV PUSH .FOR FS < 60 - SS PRN Reason: FS < 60 Docusate Sodium (Colace Cap*) 100 mg PO BID [facility] Dronedarone (Multaq Tab*) 400 mg PO DAILY [facility] Glipizide (Glucotrol Xl*) 2.5 mg PO DAILY [facility] Insulin Human Lispro (Humalog*) 0 - 10 units SUBCUT ACHS [facility] Reason: Protocol Magnesium Hydroxide (Milk Of Magnesia Liq*) 30 ml PO Q6H PRN Reason: CONSTIPATION Methocarbamol (Robaxin Tab*) 500 mg PO QID PRN Reason: muscle spasm Metoprolol Tartrate (Lopressor Tab*) 25 mg PO BID [facility] Pioglitazone HCl (Actos Tab*) 30 mg PO DAILY [facility] Senna (Senokot Tab*) 2 tab PO BEDTIME [facility] Vital Signs 02/15/17 02/15/17 02/15/17 15:31 16:02 17:19 Temperature 98.0 F Pulse Rate 101 80 Respiratory 17 Rate Blood Pressure 110/34 (mmHg) O2 Sat by Pulse 99 99 Oximetry 02/16/17 02/16/17 02/16/17 03:35 06:12 08:08 Temperature 99.5 F Pulse Rate 94 Respiratory 17 18 18 Rate Blood Pressure 136/44 (mmHg) O2 Sat by Pulse 100 Oximetry Oxygen Devices in Use Now: None Appearance: NAD, sitting up in a chair Ears/Nose/Mouth/Throat: Mucous Membranes Moist Respiratory: Symmetrical Chest Expansion and Respiratory Effort, Clear to Auscultation Cardiovascular: - - Heart rate irregular irregular Abdominal: NL Sounds; No Tenderness; No Distention Neurological: Alert and Oriented x 3 Nutrition: Taking PO's Result Diagrams: 02/16/17 06:32 02/14/17 06:41 Microbiology and Other Data: Microbiology 02/13/17 16:30 Gram Stain - Final Hip Right 02/07/17 10:39 Aerobic Blood Culture - Final Blood Venous No Growth Day 5 Anaerobic Blood Culture - Final No Growth Day 5 Blood Culture - Final 02/07/17 10:39 Aerobic Blood Culture - Final Blood Venous No Growth Day 5 Anaerobic Blood Culture - Final No Growth Day 5 Blood Culture - Final 02/07/17 12:09 Urine Culture - Final Urine No Growth (<1,000 CFU/mL) 02/06/17 04:20 Urine Culture - Final Urine Assess/Plan/Problems-Billing Assessment: - Patient Problems (1) Fracture of proximal end of right femur Code(s): S72.001A - FRACTURE OF UNSP PART OF NECK OF RIGHT FEMUR, INIT SNOMED Code(s): 967373342 Comment: - S/P IM nail - Management per Physiatry - Parital weight bearing as tolerated - Continue PT/OT (2) Leukocytosis Code(s): D72.829 - ELEVATED WHITE BLOOD CELL COUNT, UNSPECIFIED SNOMED Code(s) : 762316331 Comment: - Unclear etiology - WBC improving - Afebrile - UC and blood cultures from 02/07 no growth. No cardiopulmonary disease on chest xray from 02/07 - Urinalysis 02/13 WNL, UC with enterococcus faecalis 10-25K - Wound culture from 02/13 - normal ariel (3) Acute blood loss anemia Code(s): D62 - ACUTE POSTHEMORRHAGIC ANEMIA SNOMED Code(s): 392029432 Comment: - Secondary to surgery - Asymptomatic - No indication for a blood transfusion at this time (4) Cutaneous T-cell lymphoma Code(s): C84.A0 - CUTANEOUS T-CELL LYMPHOMA, UNSPECIFIED, UNSPECIFIED SITE SNOMED Code(s): 175446294 Comment: - Followup with Dr. Adams outpatient (5) Urinary retention Code(s): R33.9 - RETENTION OF URINE, UNSPECIFIED SNOMED Code(s): 456500554 Comment: - Resolved (6) Afib Code(s): I48.91 - UNSPECIFIED ATRIAL FIBRILLATION SNOMED Code(s): 37512096 Comment: - Continue Eliquis, Multaq and Metoprolol. (7) Diabetes Code(s): E11.9 - TYPE 2 DIABETES MELLITUS WITHOUT COMPLICATIONS SNOMED Code(s) : 90303406 Comment: - Glucose 160-260's - Continue lispro SS, actos and glipizide (8) DVT prophylaxis Code(s): NJL4846 - SNOMED Code(s): 050983311 Comment: - Eliquis (9) Full code status Code(s): Z78.9 - OTHER SPECIFIED HEALTH STATUS SNOMED Code(s): 307249680 Status and Disposition: Inpatient. Disposition per Physiatry. Thank you for this consultation, we will sign off at this time. Please call if you have any questions.
[2017-02-16] MEDS: Atorvastatin* 20 MG TAB PO SCH (16:50)
[2017-02-16] MEDS: Senna TAB PO SCH (21:06)
[2017-02-17] MEDS: Insulin LISPRO* 1 UNITS UNIT SUBCUT SCH ×4 (08:09→20:27)
[2017-02-17] MEDS: Metoprolol Tartrate TAB* 25 MG PO SCH ×2 (08:10→20:46)
[2017-02-17] MEDS: glipiZIDE TAB.XL* 2.5 MG PO SCH (08:10)
[2017-02-17] MEDS: Acetaminophen TAB* 325 MG PO SCH ×4 (08:10→20:45)
[2017-02-17] MEDS: Apixaban* 5 MG TAB PO SCH ×2 (08:10→20:45)
[2017-02-17] MEDS: Pioglitazone TAB* 30 MG PO SCH (08:10)
[2017-02-17] MEDS: Dronedarone TAB* 400 MG PO SCH (08:10)
[2017-02-17] MEDS: Docusate CAP* 100 MG PO SCH ×3 (08:10→23:47)
[2017-02-17] MEDS: HYDROcodone/ACETAMIN 5-325 MG* 1 TAB PO PRN ×2 (09:32→13:36)
[2017-02-17] MEDS: Atorvastatin* 20 MG TAB PO SCH (17:21)
[2017-02-17] MEDS: Senna TAB PO SCH (23:48)
[2017-02-18] MEDS: Insulin LISPRO* 1 UNITS UNIT SUBCUT SCH ×4 (08:28→21:38)
[2017-02-18] MEDS: HYDROcodone/ACETAMIN 5-325 MG* 1 TAB PO PRN ×2 (08:29→13:03)
[2017-02-18] MEDS: Acetaminophen TAB* 325 MG PO SCH ×4 (08:29→20:59)
[2017-02-18] MEDS: Metoprolol Tartrate TAB* 25 MG PO SCH ×2 (08:29→20:59)
[2017-02-18] MEDS: Docusate CAP* 100 MG PO SCH ×4 (08:29→21:01)
[2017-02-18] MEDS: Apixaban* 5 MG TAB PO SCH ×2 (08:30→20:59)
[2017-02-18] MEDS: Dronedarone TAB* 400 MG PO SCH (08:34)
[2017-02-18] MEDS: Pioglitazone TAB* 30 MG PO SCH (08:34)
[2017-02-18] MEDS: glipiZIDE TAB.XL* 2.5 MG PO SCH (08:34)
--- NOTE | 2017-02-18 12:27 | PMRUTEAM ---
PMRU: Goals Current Status: Nursing: Current Status Skin Deviations [r hip/leg] Incision Skin Deviation Description [r open to air, steri strips intact hip/leg] Bladder Current Status continent Bowel Current Status continent bm 02/18/17 Nutrition Current Status adequate Physical Therapy: Current Status Bed Mobility Assistance Supervision Transfer Moblility Assistance Supervision Transfer/Bed Mobility Rolling Walker Recommended Devices Ambulation Assistance Supervision Ambulation Assistive Devices Rolling Walker Number of Feet Patient 90 Ambulated Ambulation Comment antalgic step to type gait Stairs Assistance Not Tested Stairs Recommended Devices Straight Cane,One Rail Number of Stairs 2 Objective Comments Pt's pain continued throughout the session. RN notified - discussed stronger meds. Pt wants meds after session bc it makes her sleepy. Progression will be difficult if pain is not under control. Occupational Therapy: Current Status Upper Body Dressing Supervision Lower Body Dressing Supervision Bathing Min Assist Toileting Min Assist Toilet Transfer Supervision Shower Transfer Supervision Eating Independent Instrumental ADL Dependent for IADLs Rec Therapy: Current Status Summary of Assessment and RT assessment complete and pt. is aware of Clinical Impression services. Pt. watches TV regularly in the afternoons and expresses desire to be d/c'ed soon. Treatment Goals Pt. will engage in leisure activities while on the unit. Treatment Plan Provide RT services and encourage involvement. Social Work: Current Status Discharge Plan return home with home care svs and family support Potential for Family Training pt's family is involved and supportive Anticipated Discharge Home Destination Discharge With home care svs and family support Nutrition: Current Status Monitoring Intake generally 95-100% of meals, eating independently. BG varying from 109-262 past 24 hrs . Continues on Lispro SS, Actos, and Glipzide. Will follow. Goals: Physical Therapy: Initial Goals Bed Mobility Assistance Independent Transfer Mobility Assistance Independent Transfer/Bed Mobility Rolling Walker Recommended Devices Ambulation Independent Ambulation Recommended Devices Rolling Walker Ambulation Distance 150 Stairs Assistance Independent Stair Recommended Devices Straight Cane,One Rail Number of Stairs 2 Physical Therapy: Updated Goals Bed Mobility Assistance Independent Transfer Mobility Assistance Independent Transfer/Bed Mobility Rolling Walker,EZ Stand Recommended Devices Ambulation Assistance Independent Ambulation Assistive Devices Rolling Walker Ambulation Distance (ft) 150 Stairs Assistance Independent Stairs Recommended Devices Straight Cane,One Rail Number of Stairs 2 Home Exercise Program Independent Assistance Occupational Therapy: Initial Goals Goals to be Completed in (Days 21 days ) Upper Body Bathing Routine Independent Lower Body Bathing Routine Modified Independent with Upper Body Dressing Routine Independent Lower Body Dressing Routine Modified Independent with Toilet Hygeine and Clothing Modified Independent with Management Routine Toilet Transfer Routine Modified Independent with Step-In Shower Transfer Modified Independent with Routine Tub Transfer Routine Modified Independent with Functional Transfers for ADL Modified Independent with Grooming Routine Independent Feeding Routine Independent Nursing: Goals Bowel Goal continent Nutrition Goal adequate Nutrition: Goals Intervention Goals 1. Intake will remain adequate to meet needs for post-op healing 2. BG will remain adequately controlled per inpt parameters 3. Pt will establish regular bowel pattern without diarrhea/constipation Social Work: Goals Discharge Plan return home with home care svs and family support Potential for Family Training pt's family is involved and supportive Anticipated Discharge Home Destination Discharge With home care svs and family support Care Plan: Care Plan ADL's - Improve/Maintain Start: 02/06/17 14:39 Freq: QSHIFT Status: Active Target: Activity Type Activity Date Activity User E-Sign Co-Sign Detail Recorded Client Recorded Date Recorded By Document 02/17/17 13:54 [id number] 02/17/17 13:55 [id number] 02/17/17 13:54 PMRU Outcome: ADL's/ADL Transfers Orders/Interventions Occupational Therapy Evaluation & Treatment Communication Tool in Patient Room Device Yes: EZ stand Patient to receive OT 5x/wk for 60-120 Therex min/day Self Care Management Group Therapy UE/LE ADL's with Assist Yes ADL Transfers with Assist Yes Toileting: Transfers,Clothing Management Yes ,Hygeine w/Assist Light Kitchen/Laundry w/Assist Yes Progression Toward Outcome/Goals Progressing Outcome/Goals Met Pt. was limited for morning session d/t pain and increased weakness from being sedentary over the weekend. Pt. completed IADL activity of repotting a plants, and demonstrated good problem solving skills and motivation for completing a task. Cardiovascular- Improve/Maintain Start: 02/05/17 12:25 Freq: QSHIFT Status: Active Target: Activity Type Activity Date Activity User E-Sign Co-Sign Detail Recorded Client Recorded Date Recorded By Document 02/17/17 01:18 [id number] 02/17/17 01:19 [id number] 02/17/17 01:18 PMRU Outcome: Cardiovascular Vital Signs q Shift for 48hrs Then BID Yes Daily Weight Ordered No Current Cardiovascular Outcome/Goal Maintain/ Improve Perfusion Free of Abnormal Cardiac Symptoms Progression Toward Outcome/Goal Progressing DVT Prophylaxis- Improve/Maintain Start: 02/05/17 12:25 Freq: QSHIFT Status: Complete Target: Activity Type Activity Date Activity User E-Sign Co-Sign Detail Recorded Client Recorded Date Recorded By Document 02/14/17 11:06 [id number] 02/14/17 11:07 [id number] 02/14/17 11:06 PMRU Outcome: DVT Prophylaxis Outcome/Goals Remains Free of DVT Complies with DVT Prophylaxis /Treatment Demonstrates Knowledge of DVT Prevention/ Treatment TEDS Stockings on Every AM, Off at HS Progression Toward Outcome/Goals Progressing Outcome/Goals Met Remains Free of DVT TEDS Stockings on Every AM, Off at HS Discharge Planning - Improve/Maintain Start: 02/05/17 12:25 Freq: QSHIFT Status: Active Target: Activity Type Activity Date Activity User E-Sign Co-Sign Detail Recorded Client Recorded Date Recorded By Document 02/17/17 01:18 [id number] 02/17/17 01:19 [id number] 02/17/17 01:18 PMRU Outcome: Discharge Planning Update Patient Family No Outcome/Goals Demonstrates Understanding of Discharge Plan Progression Toward Outcome/Goals Progressing Education-Improve/Maintain Start: 02/05/17 12:25 Freq: QSHIFT Status: Active Target: Activity Type Activity Date Activity User E-Sign Co-Sign Detail Recorded Client Recorded Date Recorded By Document 02/17/17 01:18 [id number] 02/17/17 01:19 [id number] 02/17/17 01:18 PMRU Outcome: Education Outcome/Goals Encourage Questions Progression Toward Outcome/Goals Progressing /GI-Improve/Maintain Start: 02/05/17 12:25 Freq: QSHIFT Status: Active Target: Activity Type Activity Date Activity User E-Sign Co-Sign Detail Recorded Client Recorded Date Recorded By Document 02/17/17 01:18 [id number] 02/17/17 01:19 [id number] 02/17/17 01:18 PMRU Outcome: Genitourinary/ Gastrointestinal Genitourinary- Outcome/Goals Maintain/ Achieve Urinary Continence Remain Free of Hospital- Acquired UTI Gastrointestinal-Outcome/Goals Maintain/ Achieve Bowel Regularity in Accordance with Pt's Baseline Prevent Constipation Laxatives as Ordered Progression Toward Outcome/Goals - Progressing Progression Toward Outcome/Goals - GI Progressing Medication Administration Start: 02/05/17 12:25 Freq: QSHIFT Status: Active Target: Activity Type Activity Date Activity User E-Sign Co-Sign Detail Recorded Client Recorded Date Recorded By Document 02/17/17 01:18 [id number] 02/17/17 01:19 [id number] 02/17/17 01:18 PMRU Outcome: Medication Administration Assess Patient Knowledge/Teach Med Yes Education for all Meds Outcome/Goals Patient Independent with Medication Administration at Home Demonstrates Understanding Progression Towards Outcome/Goals Progressing Is Patient Going Home on Lovenox? No Metabolic Status- Improve/Maintain Start: 02/05/17 12:25 Freq: QSHIFT Status: Active Target: Activity Type Activity Date Activity User E-Sign Co-Sign Detail Recorded Client Recorded Date Recorded By Document 02/17/17 01:18 [id number] 02/17/17 01:19 [id number] 02/17/17 01:18 PMRU Outcome: Metabolic Status Have Fingersticks Been Ordered Yes Fingerstick Order Frequency AC & HS Outcome/Goals Maintain/ Improve Metabolic Status Demonstrate Knowledge of Prevention/ Treatment of Metabolic Imbalances Progression Toward Outcome/Goals Progressing Mobility- Improve/Maintain Start: 02/05/17 11:36 Freq: QSHIFT Status: Active Target: Activity Type Activity Date Activity User E-Sign Co-Sign Detail Recorded Client Recorded Date Recorded By Document 02/18/17 11:26 [id number] 02/18/17 11:26 [id number] 02/18/17 11:26 PMRU Outcome: Mobility Physical Therapy Evaluation and Yes Treatment Activity OOB with Assistance Yes: 50% WBing RLE Device Yes Assistance Yes Patient to be seen 5x/wk for 60-120 min/ Therex day for: Mobility Training Gait Training Balance Outcome/Goals Maintain/ Achieve Baseline Mobility Status Improve Mobility Status Demonstrates Proper Use of Assistive Devices Free from Complications of Immobility Progression Toward Outcome/Goals Progressing Bed Mobility Yes: Independent Transfers Yes: Modified Independent with RW Gait x ft Yes: Modified Independent 150 ' with RW Up/Down Stairs Yes: Independent 2 steps 1 rail, straight cane With HEP Yes: Independent Goal Comment Mantain 50% WB RLE 100% of time Pain/Comfort- Improve/Maintain Start: 02/05/17 12:25 Freq: QSHIFT Status: Complete Target: Activity Type Activity Date Activity User E-Sign Co-Sign Detail Recorded Client Recorded Date Recorded By Document 02/14/17 11:06 [id number] 02/14/17 11:07 [id number] 02/14/17 11:06 PMRU Outcome: Pain/Comfort Outcome/Goals Demonstrates Knowledge and Use of Available Comfort Measures Achieves Acceptable Comfort/Pain Level as Determined by Patient/Condit Maintain Comfort Level Allowing Patient to Fully Participate in Rehab Progression Toward Outcome/Goals Progressing Outcome/Goals Met Demonstrates Knowledge and Use of Available Comfort Measures Maintain Comfort Level Allowing Patient to Fully Participate in Rehab Respiratory - Improve/Maintain Start: 02/05/17 12:25 Freq: QSHIFT Status: Active Target: Activity Type Activity Date Activity User E-Sign Co-Sign Detail Recorded Client Recorded Date Recorded By Document 02/17/17 01:18 [id number] 02/17/17 01:19 [id number] 02/17/17 01:18 PMRU Outcome: Respiratory Does Patient Have a Trach No Outcome/Goals Maintain/ Improve Baseline Respiratory Status Maintain/ Improve Activity Tolerance Prevent Pneumonia/ Atelectasis Progression Toward Outcome/Goals Progressing Safety- Improve/Maintain Start: 02/05/17 12:25 Freq: QSHIFT Status: Complete Target: Activity Type Activity Date Activity User E-Sign Co-Sign Detail Recorded Client Recorded Date Recorded By Document 02/14/17 11:06 [id number] 02/14/17 11:07 [id number] 02/14/17 11:06 PMRU Outcome: Safety Outcome/Goals Cooperates with Safety Measures for Least Restrictive Environment Prevent Falls/ Injury Progression Toward Outcome/Goals Progressing Outcome/Goals Met Remain Free of Injury or Harm Cooperates with Safety Measures for Least Restrictive Environment Skin- Improve/Maintain Start: 02/05/17 12:25 Freq: QSHIFT Status: Active Target: Activity Type Activity Date Activity User E-Sign Co-Sign Detail Recorded Client Recorded Date Recorded By Document 02/17/17 01:18 [id number] 02/17/17 01:19 [id number] 02/17/17 01:18 PMRU Outcome: Skin Skin Risk Level Medium Skin Orders Dressing Change Turn/Position q2hr While in Bed Outcome/Goals Free from Decubitus Surgical Incisions Healing Progression Toward Outcome/Goals Progressing Medicine Note: Length of Stay: 1 week Anticipated Discharge Destination: Home Tentative Discharge Date: 02/25/17 Discharged to: Home
[2017-02-18] MEDS: Atorvastatin* 20 MG TAB PO SCH (16:48)
[2017-02-18] MEDS: Senna TAB PO SCH ×2 (20:59→21:01)
[2017-02-19] MEDS: Insulin LISPRO* 1 UNITS UNIT SUBCUT SCH ×4 (08:24→21:12)
[2017-02-19] MEDS: Pioglitazone TAB* 30 MG PO SCH (08:25)
[2017-02-19] MEDS: HYDROcodone/ACETAMIN 5-325 MG* 1 TAB PO PRN ×2 (08:25→12:19)
[2017-02-19] MEDS: Dronedarone TAB* 400 MG PO SCH (08:25)
[2017-02-19] MEDS: Metoprolol Tartrate TAB* 25 MG PO SCH ×2 (08:26→21:39)
[2017-02-19] MEDS: Acetaminophen TAB* 325 MG PO SCH ×4 (08:26→21:14)
[2017-02-19] MEDS: glipiZIDE TAB.XL* 2.5 MG PO SCH (08:26)
[2017-02-19] MEDS: Apixaban* 5 MG TAB PO SCH ×2 (08:26→21:16)
[2017-02-19] MEDS: Docusate CAP* 100 MG PO SCH ×2 (08:45→21:17)
[2017-02-19] MEDS: Atorvastatin* 20 MG TAB PO SCH (16:50)
[2017-02-19] MEDS: Senna TAB PO SCH (21:18)
[2017-02-20] MEDS: Insulin LISPRO* 1 UNITS UNIT SUBCUT SCH ×4 (07:35→20:29)
[2017-02-20] MEDS: Metoprolol Tartrate TAB* 25 MG PO SCH ×2 (08:22→20:18)
[2017-02-20] MEDS: HYDROcodone/ACETAMIN 5-325 MG* 1 TAB PO PRN ×2 (08:22→12:58)
[2017-02-20] MEDS: glipiZIDE TAB.XL* 2.5 MG PO SCH (08:23)
[2017-02-20] MEDS: Dronedarone TAB* 400 MG PO SCH (08:23)
[2017-02-20] MEDS: Acetaminophen TAB* 325 MG PO SCH ×4 (08:23→20:19)
[2017-02-20] MEDS: Apixaban* 5 MG TAB PO SCH ×2 (08:23→20:19)
[2017-02-20] MEDS: Pioglitazone TAB* 30 MG PO SCH (08:23)
[2017-02-20] MEDS: Docusate CAP* 100 MG PO SCH ×2 (08:25→19:15)
[2017-02-20] MEDS: Atorvastatin* 20 MG TAB PO SCH (16:58)
[2017-02-20] MEDS: Senna TAB PO SCH (19:15)
[2017-02-21 05:39] VITALS: BP 116/53
[2017-02-21 05:44] LABS: Hematocrit 28 % (35-47); Mean Corpuscular HGB Conc 33 g/dl (31-36); Mean Corpuscular Hemoglobin 32 pg (27-31); Mean Corpuscular Volume 99 fL (80-97); Mean Platelet Volume 8 um3 (7.4-10.4); Red Blood Count 2.79 10^6/ul (4.0-5.4); Red Cell Distribution Width 16 % (10.5-15); White Blood Count 10.1 10^3/ul (3.5-10.8)
[2017-02-21 05:57] LABS: BUN/Creatinine Ratio 23.5 (8-20); Calcium 8.7 mg/dL (8.6-10.3); EGFR African American 107.3 (>60); EGFR Non-African American 83.5 (>60); Globulin 2.1 g/dL (2-4); Potassium 3.9 mmol/L (3.5-5.0); Total Bilirubin 0.8 mg/dL (0.2-1.0); Total Protein 5.1 g/dL (6.4-8.9)
[2017-02-21] MEDS: Insulin LISPRO* 1 UNITS UNIT SUBCUT SCH (08:42)
[2017-02-21] MEDS: Apixaban* 5 MG TAB PO SCH (08:43)
[2017-02-21] MEDS: glipiZIDE TAB.XL* 2.5 MG PO SCH (08:43)
[2017-02-21] MEDS: Acetaminophen TAB* 325 MG PO SCH (08:43)
[2017-02-21] MEDS: Metoprolol Tartrate TAB* 25 MG PO SCH (08:43)
[2017-02-21] MEDS: Pioglitazone TAB* 30 MG PO SCH (08:43)
[2017-02-21] MEDS: Dronedarone TAB* 400 MG PO SCH (08:43)
[2017-02-21] MEDS: Docusate CAP* 100 MG PO SCH (08:48)
--- NOTE | 2017-02-22 06:23 | DS ---
CC: Dr. Chiquis Cisneros * DISCHARGE SUMMARY: DATE OF ADMISSION: 02/05/17 DATE OF DISCHARGE: 02/21/17 DISCHARGE DIAGNOSES: 1. Right hip fracture. 2. Diabetes mellitus. 3. Atrial fibrillation. 4. Cutaneous T-cell lymphoma. 5. Hypertension. 6. Leukocytosis with no apparent cause. HISTORY OF ILLNESS AND HOSPITAL COURSE: For complete history of the events leading up to her rehab stay, please see the history and physical dictated by me on 02/05/17. While on the rehab unit, the patient was noted to have an elevated white blood cell count. It appeared to be elevated from the time of admission. She did have a general workup including a chest x-ray and a urinalysis, which were largely unrevealing. The patient did have some drainage from her right hip wound, which was not felt to require any further treatment. She took Eliquis for her atrial fibrillation and this was adequate for DVT prophylaxis. The patient was otherwise medically stable. The patient was seen by both Physical Therapy and Occupational Therapy and made good gains with both disciplines. With physical therapy at the time of admission, the patient required moderate amount of assistance of 2 people to do a transfer. She was unable to ambulate with occupational therapy at the time of admission. The patient was total assist for lower body dressing, total assistance for toileting. By the time of discharge, the patient was independent of transfers, independent ambulating 150 feet with a rolling walker, independent in her activities of daily living. The patient was discharged home on 02/21/17. DISCHARGE DIET: Consistent carbohydrate. DISCHARGE MEDICATIONS: 1. Eliquis 5 mg twice daily. 2. Lipitor 20 mg daily. 3. Multaq 400 mg daily. 4. Snow 1 tablet every 4 hours as needed. 5. Lopressor 25 mg twice a day. 6. Glipizide 2.5 mg daily. 7. Actos 30 mg daily. SERVICES AFTER DISCHARGE: Through visiting nurse service of [facility]. She will have home nursing, home physical therapy, home occupational therapy, and a home health aide. Follow up with Dr. Chadd Singh as well as her primary care doctor, Dr. Chiquis Cisneros. [id number]/[facility] #: [id number] [facility] HOSPITALAriel
== END 2017-02-21 10:40 | disposition home health service (06) | DRG 560 ==
LOC: PMRU 11:08
PROVIDERS: ADMIT Physical Medicine & Rehabilitation; ATTEND Physical Medicine & Rehabilitation
PROC: F07Z5ZZ Bed Mobility Treatment (ICD-10-PCS; principal; 2017-02-05)
PROC: F07Z9ZZ Gait Training/Functional Ambulation Treatment (ICD-10-PCS; 2017-02-05)
PROC: F07Z8ZZ Transfer Training Treatment (ICD-10-PCS; 2017-02-05)
PROC: F08Z0ZZ Bathing/Showering Techniques Treatment (ICD-10-PCS; 2017-02-05)
PROC: F08Z1ZZ Dressing Techniques Treatment (ICD-10-PCS; 2017-02-05)
PROC: F08Z3ZZ Feeding/Eating Treatment (ICD-10-PCS; 2017-02-05)
DX: S72.141D Displaced intertrochanteric fracture of right femur, subsequent encounter for closed fracture with routine healing (principal); C84.A0 Cutaneous T-cell lymphoma, unspecified, unspecified site; I48.91 Unspecified atrial fibrillation; E11.9 Type 2 diabetes mellitus without complications; I10 Essential (primary) hypertension; D72.829 Elevated white blood cell count, unspecified; D62 Acute posthemorrhagic anemia; R33.9 Retention of urine, unspecified; E80.6 Other disorders of bilirubin metabolism; E78.5 Hyperlipidemia, unspecified; W18.30XD Fall on same level, unspecified, subsequent encounter; Z79.84 Long term (current) use of oral hypoglycemic drugs; Z79.01 Long term (current) use of anticoagulants; Z79.899 Other long term (current) drug therapy; Z82.3 Family history of stroke; Z83.3 Family history of diabetes mellitus; Z80.3 Family history of malignant neoplasm of breast; Z80.0 Family history of malignant neoplasm of digestive organs
CPT/HCPCS: 36415; 71020; 80053; 81003; 81015; 83615; 85025; 85060; 85610; 85652; 86141; 87040; 87070; 87077; 87086; 87186; 87205; 99233; A9270-GY

== ENCOUNTER 2017-10-08 07:09 | Day surgery (SDC) | payer MEDICARE ==
[~2017-10-08 07:09] MED LIST: Buffered Lidocaine 0.9% SYRIN* 5 ML/SYR SYRINGE INTRADERM ONE; Dexamethasone IV* 4 MG/ML 1 ML (4 MG) IV SLOW PU ONE; Famotidine TAB* 20 MG PO ONE
[2017-10-08] MEDS ORDERED: Dexamethasone IV* 4 MG/ML 1 ML (4 MG) ONE (07:26)
[2017-10-08] MEDS ORDERED: Famotidine TAB* 20 MG ONE (07:27)
[2017-10-08] MEDS ORDERED: Metoprolol Tartrate TAB* 25 MG ONE (08:02)
[2017-10-08] MEDS ORDERED: Metoprolol Tartrate TAB* 25 MG PO ONE (08:02)
[2017-10-08] MEDS ORDERED: Propofol* 10 MG/ML 20 ML BTL IV PUSH ONE (08:23)
[2017-10-08] MEDS ORDERED: Ondansetron INJ* 2 MG/ML VIAL ONE (08:23)
[2017-10-08] MEDS ORDERED: fentaNYL* 50 MCG/ML 2 ML VIAL (100 MCG VIAL) ONE (08:23)
[2017-10-08] MEDS ORDERED: Midazolam* 1 MG/ML 5 ML VIAL (5 MG) ONE (08:23)
[2017-10-08] MEDS ORDERED: ceFAZolin 1 GM in Dextrose (*) 1 GM/50 ML BAG IVPB ONE (08:56)
[2017-10-08] MEDS ORDERED: Lidocain 1% EPI 1:100,000 * 30 ML MDV ONE (09:02)
[2017-10-08] MEDS ORDERED: Bupivacaine 0.5% SDV PF* 30ML VIAL ONE (09:03)
[2017-10-08] MEDS ORDERED: Naloxone* 0.4 MG/ML 1 ML VIAL IV PRN (09:19)
[2017-10-08] MEDS ORDERED: oxyCODONE/Acetamin 5/325 MG* TAB PO PRN (10:41)
[2017-10-08 11:17] VITALS: BP 160/52
--- NOTE | 2017-10-09 14:15 | OP ---
CC: Chiquis Cisneros MD; Lopez Adams MD * DATE OF OPERATION: 10/08/17 - [facility] DATE OF : 39 SURGEON: Timi Arce MD GOPHERMAN: Marya Bean NP ANESTHESIOLOGIST: Dr. Gibson. ANESTHESIA: Local MAC anesthesia. PRE-OP DIAGNOSIS: Left axillary lymphadenopathy. POST-OP DIAGNOSIS: Left axillary lymphadenopathy. OPERATIVE PROCEDURE: Exploration of left axilla and lymph node biopsy. ESTIMATED BLOOD LOSS: Minimal. SPECIMENS: Portion of node for frozen section that turned out to be consistent with fatty tissue only and a second lesion sent for fresh. DRAINS: None. DESCRIPTION OF PROCEDURE: The patient was identified in the preoperative area. Consent was signed. She was marked at the left axilla, taken back to the operating room, placed on the operating table in supine position. Sequential devices were placed on bilateral lower extremities. Preoperative antibiotics were given. Gentle sedation was given. The patient's left axilla was prepped and draped in standard surgical fashion. Time-out was performed. A curvilinear incision was made just at the edge of the hair-bearing areas. This was deepened through the skin and flaps were made, both medially and posteriorly. The underlying fascia was incised and I examined the area of the axilla and I could not appreciate any discrete lymph nodes in the superficial sites. My intention was to get into this area, but I found I could not appreciate anything, so we deepened our dissection overlying axillary vein and felt around for any lymphadenopathy. None was appreciated. We did take some tissue that we thought might be consistent with lymph node, sent for frozen section. While frozen section was pending, we examined more superficial tissue structures and found a lesion that appeared to be consistent with the seen lesions on the CT scan. Again, nothing was too palpable outside from an examination standpoint or from within the incision site. With this tissue that I saw more superficially and medially, this was excised and passed off as specimen. We then irrigated. Hemostasis was achieved. Then we closed the wound , taking the fascia with 2-0 Vicryl and then closing the skin with 3-0 Vicryl subcutaneous stitches followed by a 4-0 subcuticular running suture. Steri- Strips and sterile dressing were applied. The patient tolerated the procedure well and was transferred to the PACU in stable condition. [id number]/[facility] #: [id number] MTDAriel
== END 2017-10-08 11:40 | disposition home or self-care (01) ==
LOC: OR 07:09
PROVIDERS: ATTEND Surgery
DX: R59.0 Localized enlarged lymph nodes (principal); I48.91 Unspecified atrial fibrillation; I44.7 Left bundle-branch block, unspecified; Z79.01 Long term (current) use of anticoagulants; R00.2 Palpitations; D64.9 Anemia, unspecified; E11.9 Type 2 diabetes mellitus without complications; M19.90 Unspecified osteoarthritis, unspecified site
CPT/HCPCS: 88305; 88333; A9270-GY; J0690; J1100; J2250; J2405; J2704; J3010

== ENCOUNTER 2018-05-22 09:40 | Emergency (ER) | payer MEDICARE ==
[2018-05-22 09:56] VITALS: BP 176/55
[2018-05-22] MEDS ORDERED: HYDROcodone/ACETAMIN 5-325 MG* 1 TAB PO ONE (10:50)
--- NOTE | 2018-05-22 11:19 | ED ---
Upper Extremity Pain - HPI Summary HPI Summary: An 83 y/o female presents to the ED c/o right shoulder pain, after she tripped and fell since about 09:00 05/22/2018. She denies hitting her head, sycope, SOB, CP, JOHNSON, neck pain and head pain. She is taking Eliquis for a-fib. She states that she has NKDA. She has DM but denies HLD and HTN. She denies smoking, EtOH use or drug use. - History of Current Complaint Chief Complaint: EDShoulderClaYonatan Stated Complaint: RT SHOULDER INJURY Time Seen by Provider: 05/22/18 10:29 Hx Obtained From: Patient Mechanism Of Injury: Fall From A Standing Position Onset/Duration: Started Hours Ago, Still Present Timing: Constant Severity Initially: Moderate Severity Currently: Moderate Pain Location: Shoulder Associated Signs & Symptoms: Negative: Chest Pain, SOB - Allergies/Home Medications Allergies/Adverse Reactions: Allergies Allergy/AdvReac Type Severity Reaction Status Date / Time CAT SCAN DYE Allergy Mild FULL BODY Uncoded 05/22/18 09:56 RASH PMH/Surg Hx/FS Hx/Imm Hx Endocrine/Hematology History: Reports: Hx Anticoagulant Therapy - eliquis, Hx Diabetes - control with meds Cardiovascular History: Reports: Hx Atrial Fibrillation, Other Cardiovascular Problems/Disorders - on atorvastatin but denies cholesterol problems Denies: Hx Hypercholesterolemia, Hx Hypertension GI History: Reports: Hx Irritable Bowel Musculoskeletal History: Reports: Hx Arthritis - back and hips, Hx Orthopedic Injury - fractured l leg 2015 Denies: Hx Osteoporosis Sensory History: Reports: Hx Contacts or Glasses - glasses Denies: Hx Hearing Aid Opthamlomology History: Reports: Hx Contacts or Glasses - glasses Neurological History: Denies: Other Neuro Impairments/Disorders - Cancer History Cancer Type, Location and Year: cutaneous t cell lymphoma l side Hx Chemotherapy: No - Surgical History Surgery Procedure, Year, and Place: hyste[place] [facility] [place]. [place]ning [place] mk, [facility] [place] Hx Anesthesia Reactions: Yes - hx of nausea with hysterectomy - Immunization History Immunizations Up to Date: Yes Infectious Disease History: No Infectious Disease History: Denies: Traveled Outside the [place] in Last 30 Days - Family History Known Family History: Negative: Cardiac Disease, Hypertension, Diabetes - Social History Alcohol Use: Occasionally Alcohol Amount: one a day Hx Substance Use: No Substance Use Type: Reports: None Hx Tobacco Use: No Smoking Status (MU): Never Smoked Tobacco Type: Cigarettes Have You Smoked in the Last Year: No Review of Systems Negative: Chest Pain Negative: Shortness Of Breath Musculoskeletal: Other - Positive: right shoulder pain Negative: Myalgia - neck, head Negative: Headache, Syncope All Other Systems Reviewed And Are Negative: Yes Physical Exam - Summary Physical Exam Summary: VITAL SIGNS: Reviewed. GENERAL: Patient is a well-developed and nourished FEMALE who is lying comfortable in the stretcher. Patient is not in any acute respiratory distress. HEAD AND FACE: No signs of trauma. No ecchymosis, hematomas or skull depressions. No sinus tenderness. EYES: PERRLA, EOMI x 2, No injected conjunctiva, no nystagmus. EARS: Hearing grossly intact. Ear canals and tympanic membranes are within normal limits. MOUTH: Oropharynx within normal limits. NECK: Supple, trachea is midline, no adenopathy, no JVD, no carotid bruit, no c- spine tenderness, neck with full ROM. CHEST: Symmetric, no tenderness at palpation LUNGS: Clear to auscultation bilaterally. No wheezing or crackles. CVS: Regular rate and rhythm, S1 and S2 present, no murmurs or gallops appreciated. ABDOMEN: Soft, non-tender. No signs of distention. No rebound no guarding, and no masses palpated. Bowel sounds are normal. EXTREMITIES: decreased ROM in right shoulder, deformity, no hematoma, good neurovascular sensation in RUE. NEURO: Alert and oriented x 3. No acute neurological deficits. Speech is normal and follows commands. SKIN: Dry and warm Triage Information Reviewed: Yes Vital Signs On Initial Exam: Initial Vitals Temp Pulse Resp BP Pulse Ox 98.1 F 65 18 176/55 96 05/22/18 09:52 05/22/18 09:52 05/22/18 09:52 05/22/18 09:52 05/22/18 09:52 Vital Signs Reviewed: Yes Diagnostics - Vital Signs Vital Signs Temp Pulse Resp BP Pulse Ox 05/22/18 09:52 98.1 F 65 18 176/55 96 - Laboratory Lab Statement: Any lab studies that have been ordered have been reviewed, and results considered in the medical decision making process. - Radiology Shoulder X-ray Radiology Interpretation Completed By: Radiologist - COMMINUTED AND IMPACTED FRACTURE OF THE PROXIMAL RIGHT HUMERUS. ED physician has reviewed this report. CXR Radiology Interpretation Completed By: Radiologist - COPD. No active cardiopulmonary disease. ED physician has reviewed this report. Course/Dx - Course Assessment/Plan: An 83 y/o female presents to the ED c/o right shoulder pain, after she tripped and fell since about 09:00 05/22/2018. Chest x-ray impression : No acute pathology. Right shoulder x-ray impression: Comminuted and impacted fracture of the proximal right humerus. In the ED course the patient was given Center for the pain. The patient was placed in a shoulder immobilizer and she will be discharged home with follow-up with orthopedics. The patient will be given Center for pain. She was instructed to return to the emergency room if the symptoms do not improve. The patient understands and agrees. Patient is hemodynamically stable alert and oriented 3. Before discharge the neurological exam is found to be within normal limits has no acute neurological focal deficits. I did not perform a CT of the head or neck since the patient did not hit her head or neck. The patient has no other complaints. - Diagnoses Differential Diagnosis/HQI/PQRI: Positive: Bursitis, Contusion, Fracture (Closed ), Strain, Sprain Provider Diagnoses: Closed fracture of right proximal humerus Discharge - Sign-Out/Discharge Documenting (check all that apply): Patient Departure - DC - Discharge Plan Condition: Stable Disposition: HOME Prescriptions: HYDROcodone/ACETAMIN 5-325 MG* [Center 5-325 TAB*] 1 tab PO Q6H PRN #15 tab MDD 4 PRN Reason: Pain Polyethylene Glycol 3350* [Miralax*] 17 gm PO DAILY PRN #12 packet PRN Reason: Constipation Patient Education Materials: Arm Fracture in Adults (ED) Referrals: Jose Kirk MD [Medical Doctor] - 3 Days Chiquis Cisneros MD [Primary Care Provider] - 3 Days Additional Instructions: Follow up with Pranav Stern. Return to the Emergency Department for any changing or worsening symptoms. - Billing Disposition and Condition Condition: STABLE Disposition: Home - Attestation Statements Document Initiated by Scribe: Yes Documenting Scribe: Harrison Espinosa Provider For Whom Scribe is Documenting (Include Credential): Nacho Jesus MD Scribe Attestation: Harrison Baca scribed for Nacho Jesus MD on 05/23/18 at 0830. Scribe Documentation Reviewed: Yes Provider Attestation: The documentation as recorded by the scribe, Harrison Espinosa accurately reflects the service I personally performed and the decisions made by me, Nacho Jesus MD Attestations User Type: Provider with Scribe Provider Attestation: The documentation recorded by the scribe accurately reflects the service I personally performed and the decisions made by me.
== END 2018-05-22 13:44 | disposition home or self-care (01) ==
LOC: ED 09:40
DX: S42.201A Unspecified fracture of upper end of right humerus, initial encounter for closed fracture (principal); W01.0XXA Fall on same level from slipping, tripping and stumbling without subsequent striking against object, initial encounter; Y92.9 Unspecified place or not applicable; K58.9 Irritable bowel syndrome, unspecified; E11.9 Type 2 diabetes mellitus without complications; I48.91 Unspecified atrial fibrillation; Z79.01 Long term (current) use of anticoagulants; J44.9 Chronic obstructive pulmonary disease, unspecified
CPT/HCPCS: 71045; 99281